=== PATIENT | male | born 1985 | race Caucasian/White ===

== ENCOUNTER 2019-01-18 00:31 | Inpatient (IN) ==
[2019-01-18] MEDS ORDERED: Naloxone 0.4 MG/ML INJ IVP PRN (08:22)
[2019-01-18] MEDS ORDERED: Ketorolac 30 MG/ML VIAL IVP PRN (08:22)
--- NOTE | 2019-01-18 08:22 | Internal Med History&Physical ---
Date of Encounter: 01/18/19 Time of Encounter: 09:00 Internal Medicine - H&P: HPI History of present illness: Mr. Akins is a 33 male with poorly controlled diabetes, chronic right foot wound ulcers, right toes amputation, left BKA presented as a transfer from [place] ED for a worsening right foot ulcer. Onset was 4 weeks ago after stepping on glass. He has had episodes of nausea for several days and noteiced right leg has been getting red and swollen with some discharge on bottom of f oot. He was supposed to see Wound Care but was unable to do so. He denies fevers/chills, palpitations. In [place] he was given IV clindamycin, IV fluids, IV toradol. The right foot wound was washed out and glass was removed with forceps. An x-ray was then done that showed no residual glass. Wound cultures were obtained. He was transferred here to [facility] for request of Podiatry consult. Past Med Surg Social Fam HX - Past Medical History Medical history: diabetes, hypertension Psychiatric history: anxiety, depression - Past Surgical History Additional surgical history: LBKA,RIGHT PARTIAL FOOT AMPUTATION - Social History Smoking Status: Current every day smoker Smokeless Tobacco Status: No Alcohol use: rarely Drug use: marijuana Internal Medicine - H&P: Meds Insulin ASPART [NovoLOG] 0 unit SQ TIDWM 11/25/18 [History] Insulin Glargine [Lantus] 42 unit SQ HS 11/25/18 [History] Omeprazole [PriLOSEC] 40 mg PO DAILY 11/25/18 [History] amLODIPine [Norvasc] 5 mg PO DAILY 11/25/18 [History] Allergy/AdvReac Type Severity Reaction Status Date / Time vancomycin AdvReac See Verified 01/17/19 21:19 Comments All Systems PM: A 10-system review of systems was performed and is negative for pertinent findings except as documented above in the HPI. - Constitutional Constitutional: no chills, no fever(s), no night sweats - EENT Eyes: no change in vision, no discharge, no pain, no photophobia Ears: no ear discharge, no ear pain, no tinnitus Nose, mouth and throat: no dysphagia, no nasal discharge, no neck pain, no sore throat - Cardiovascular Cardiovascular ROS IM: no chest pain, no diaphoresis, no dyspnea, no lightheadedness, no palpitations, no syncope - Respiratory Respiratory: no cough, no dyspnea, no wheezing, no excessive phlegm production - Gastrointestinal Gastrointestinal: nausea, no abdominal pain, no diarrhea, no hematemesis, no hematochezia, no melena, no vomiting - Musculoskeletal Musculoskeletal ROS IM: no numbness, no tingling - Integumentary Integumentary IM: no rash, no unusual bruising - Neurological Neurological ROS: no confusion, no convulsions, no focal weakness, no numbness, no tingling, no tremor(s) - Hematologic/Lymphatic Hematologic/Lymphatic: no easy bruising - Constitutional Vitals: Temp Pulse Resp BP Pulse Ox 97.6 F 66 15 102/64 98 01/18/19 08:14 01/18/19 08:14 01/18/19 08:14 01/18/19 08:14 01/18/19 08:14 General appearance: Present: A&O X 3 Exam: . - Head Head exam: Present: atraumatic, normocephalic - Eye Eye exam: Present: PERRL, conjuntiva pink, sclera anicteric Pupils: Present: PERRL - Neck Neck exam general surgery: Present: supple, trachea midline. Absent: lymphadenopathy - Respiratory Respiratory exam: Present: CTAB. Absent: accessory muscle use, rales, rhonchi, wheezes - Cardiovascular Cardiovascular exam: Present: RRR, +S1, +S2. Absent: diastolic murmur, gallop, rubs, systolic murmur - GI/Abdominal GI/Abdominal exam: Present: normal bowel sounds, soft, no peritoneal signs. Absent: distended, tenderness - Extremities Exam Extremities exam: Present: warm. Absent: calf tenderness, cyanotic, pedal edema Additional comments: Left BKA. Right Extremity: right toes are amputated with surgical wounds clear. There is a 2x3 cm plantar surface ulcer post-washout and glass removal. Wound is clean currently with no purulent discharge or bleeding. There is a lateral non- healing ulcer on lateral part of foot and another ulceration on the posterior ankle in the Achilles tendon region. - Neurological Exam Neurological exam: Present: CN II-XII intact, oriented X3, no focal deficits. Absent: pronater drift, facial droop, speech deficit - Skin Skin exam: Present: dry, intact - Assessment and Plan (1) Diabetic foot ulcer Current Visit: No Status: Acute Assessment and plan: Transferred from [place] ED with request for Podiatry consultation. Patient is non-toxic appearing at this time. Labs done at [place] ED, does not meet sepsis criteria. Received dose of IV Clindamycin at [place] - Consult Podiatry - NPO for now, if no intervention is needed, can start a diabetic diet - Linezolid/Zosyn. Allergic to vancomycin. MRSA screen, follow-up wound cultures obtained at [place]. - CT right foot Qualifiers: Diabetic foot ulcer location: unspecified part of foot Diabetes mellitus type: type 2 Laterality: right Non-pressure ulcer stage: with fat layer exposed Qualified Code(s): E11.621 - Type 2 diabetes mellitus with foot ulcer; L97.512 - Non-pressure chronic ulcer of other part of right foot with fat layer exposed (2) Diabetes mellitus Current Visit: Yes Status: Acute Assessment and plan: NPO for now until Podiatry eval. 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 - Time Spent With Patient Total time spent is greater than 50% in coordination of care (as documented) at patient's floor/unit and/or counseling patient:
[2019-01-18] MEDS ORDERED: Insulin LISPRO 300 UNITS/3 ML VIAL SQ SCH (08:30)
[2019-01-18] MEDS ORDERED: *HR* Dextrose 50 % in Water (Syg) 50 ML SYRINGE IVP PRN (08:50)
[2019-01-18] MEDS ORDERED: Dextrose Gel 15 GM/37.5 ML TUBE PO PRN ×2 (08:50)
[2019-01-18] MEDS ORDERED: D5% in Water 1,000 ML IVC PRN (08:50)
[2019-01-18] MEDS ORDERED: Isovue-370 500 ML BOTTLE IVP ONE (08:52)
[2019-01-18] MEDS ORDERED: Ringers Solution, Lactated 1,000 ML IVC SCH (09:00)
[2019-01-18] MEDS: Piperacillin/Tazobactam 3.375 GM in 0.9 % Sodium Chloride Mini Bag 100 ML IVPB SCH ×2 (10:48→19:03)
[2019-01-18] MEDS: *HR* Heparin 5,000 UNIT/ML VIAL SQ SCH ×2 (10:48→17:36)
[2019-01-18] MEDS: 0.9 % Sodium Chloride 1,000 ML IVC SCH (10:49)
[2019-01-18] MEDS ORDERED: *HR* OxyCODONE Immed Rel 5 MG TABLET PO PRN (11:36)
[2019-01-18] MEDS: Insulin LISPRO 300 UNITS/3 ML VIAL SQ SCH ×3 (12:03→20:56)
[2019-01-18] MEDS: *HR* OxyCODONE Immed Rel 5 MG TABLET PO PRN (21:38)
[2019-01-18] MEDS: Nicotine 14 MG PATCH.TD24 TD SCH (22:56)
[2019-01-18] MEDS ORDERED: *HR* LORazepam 2 MG/ML VIAL IVP ONE (22:59)
[2019-01-19] MEDS: *HR* OxyCODONE Immed Rel 5 MG TABLET PO PRN ×6 (01:36→23:53)
[2019-01-19 02:20] LABS: Basophils % 0.6 %; Eosinophils # 0.2 K/mcL (0.0-0.6); Eosinophils % 4.6 %; Hematocrit 35.3 % (37.5-50.1); Hemoglobin 11.8 g/dL (12.9-16.9); Immature Granulocytes % 0.3 % (0-4); Lymphocytes # 1.3 K/mcL (0.6-4.6); Lymphocytes % 37.5 %; Mean Corpuscular HGB Conc 33.4 g/dL (31.6-35.5); Mean Corpuscular Hemoglobin 31.7 pg (28.0-33.3); Mean Corpuscular Volume 94.9 fL (83.0-100.0); Monocytes # 0.3 K/mcL (0.0-1.3); Monocytes % 8.9 %; Neutrophils # 1.7 K/mcL (1.6-8.9); Platelet Count 150 K/mcL (140-400); Red Blood Count 3.72 M/mcL (4.19-5.50); Segmented Neutrophils % 48.1 %; White Blood Count 3.5 K/mcL (4.3-11.1)
[2019-01-19 02:27] LABS: INR 1.1; Prothrombin Time 12.4 Seconds (9.4-12.1)
[2019-01-19 02:35] LABS: BUN/Creatinine Ratio 12 (6-26); Blood Urea Nitrogen 12 mg/dL (6-20); Calcium 8.9 mg/dL (8.6-10.3); Carbon Dioxide 27 mEq/L (23-29); Chloride 105 mEq/L (98-107); Glucose 113 mg/dL (70-105); Osmolality,Calculated 287 (280-300); Potassium 3.8 mEq/L (3.5-5.1); Sodium 138 mEq/L (136-145); eGFR For African Americans > 60 (> 60); eGFR For Non-African Americans > 60 (> 60)
[2019-01-19] MEDS: Piperacillin/Tazobactam 3.375 GM in 0.9 % Sodium Chloride Mini Bag 100 ML IVPB SCH ×3 (03:06→18:08)
[2019-01-19] MEDS: 0.9 % Sodium Chloride 1,000 ML IVC SCH ×3 (03:08→15:06)
[2019-01-19] MEDS: *HR* Heparin 5,000 UNIT/ML VIAL SQ SCH ×2 (06:23→18:08)
[2019-01-19 07:03] LABS: Estimated Average Glucose 146 mg/dl
[2019-01-19] MEDS: Insulin LISPRO 300 UNITS/3 ML VIAL SQ SCH ×4 (07:56→20:32)
[2019-01-19] MEDS: amLODIPine 5 MG TABLET PO SCH (09:47)
--- NOTE | 2019-01-19 14:49 | Internal Med Progress Note ---
Hospitalist Progress Note - Encounter Date of Encounter: 01/19/19 Time of Encounter: 09:23 - Subjective Interval History: NO acute events. Patient denies pain, fever and chills. - Exam Vitals: Temp Pulse Resp BP Pulse Ox 36.6 C 77 14 133/81 99 01/19/19 10:49 01/19/19 10:49 01/19/19 10:49 01/19/19 10:49 01/19/19 10:49 Exam: .GENERAL: Not in distress. Alert and Oriented HEENT: EOMI, PERRLA MOUTH: Good oral hygiene NECK:No JVD, No lymph nodes. CHEST AND LUNGS: Normal breath sounds, no wheezes or crackles HEART: S1 and S2 normal, no murmurs ABDOMEN: Soft, nontender, no organomegaly GENITOURINARY: SKIN: Normal color, no rahses, no lesions EXTREMITIES: Left BKA with healthy looking stump. Right foot with TMA. Dressing over foot is currently clean without drainage. NEUROLOGICAL: Normal cognition, normal motor and sensory exam. - Assessment and Plan (1) Diabetic foot ulcer Current Visit: No Status: Acute Assessment and Plan: Podiatry consult placed Awaiting review Continue IV antibiotics (2) Diabetes mellitus Current Visit: Yes Status: Acute Assessment and Plan: NPO for now until Podiatry eval. ISS Q6H (3) DVT prophylaxis Current Visit: Yes Status: Acute Assessment and Plan: Accuchecks Sliding scale - Time Spent with Patient Total time spent is greater than 50% in coordination of care (as documented) at patient's floor/unit and/or counseling patient: Internal Medicine: Result - Labs CBC & Chem 7: 01/19/19 01:46 01/19/19 01:46 Labs: Short CBC 01/19/19 Range/Units 01:46 WBC 3.5 L (4.3-11.1) K/mcL Hgb 11.8 L (12.9-16.9) g/dL Hct 35.3 L (37.5-50.1) % Plt Count 150 (140-400) K/mcL Neutrophils # 1.7 (1.6-8.9) K/mcL BMP 01/19/19 01:46 Sodium 138 Potassium 3.8 Chloride 105 Carbon Dioxide 27 BUN 12 Creatinine 1.01 Glucose 113 H Calcium 8.9 - ABG Interpretation ABG results: PT/INR, D-dimer PT 12.4 Seconds (9.4-12.1) H 01/19/19 01:46 Consult Discharge Plan - Plan Referrals: NONE,PCP [Primary Care Provider] - (1) Diabetic foot ulcer Qualifiers: Diabetic foot ulcer location: unspecified part of foot Diabetes mellitus type: type 2 Laterality: right Non-pressure ulcer stage: with fat layer exposed Qualified Code(s): E11.621 - Type 2 diabetes mellitus with foot ulcer; L97.512 - Non-pressure chronic ulcer of other part of right foot with fat layer exposed (2) Diabetes mellitus Qualifiers: Diabetes mellitus type: type 2 Diabetes mellitus long term care administrator insulin use: with long term care administrator use Diabetes mellitus complication status: with skin complications Diabetes mellitus complication detail: with foot ulcer Qualified Code(s): E11.621 - Type 2 diabetes mellitus with foot ulcer; L97.509 - Non-pressure chronic ulcer of other part of unspecified foot with unspecified severity; 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
[2019-01-19] MEDS: Nicotine 14 MG PATCH.TD24 TD SCH (21:56)
[2019-01-19] MEDS ORDERED: *HR* LORazepam 2 MG/ML VIAL IVP ONE (22:05)
[2019-01-20] MEDS: Piperacillin/Tazobactam 3.375 GM in 0.9 % Sodium Chloride Mini Bag 100 ML IVPB SCH ×3 (04:02→18:50)
[2019-01-20] MEDS: *HR* OxyCODONE Immed Rel 5 MG TABLET PO PRN ×5 (04:04→21:48)
[2019-01-20] MEDS: *HR* Heparin 5,000 UNIT/ML VIAL SQ SCH ×2 (05:19→17:58)
[2019-01-20] MEDS: Insulin LISPRO 300 UNITS/3 ML VIAL SQ SCH ×4 (08:40→21:19)
[2019-01-20] MEDS: amLODIPine 5 MG TABLET PO SCH (09:43)
[2019-01-20] MEDS: 0.9 % Sodium Chloride 1,000 ML IVC SCH (09:46)
--- NOTE | 2019-01-20 11:39 | Internal Med Progress Note ---
Hospitalist Progress Note - Encounter Date of Encounter: 01/20/19 Time of Encounter: 11:35 - Subjective Interval History: Patient seen and examined this morning at bedside. No acute overnight events. Denies any fevers chills however does have some nausea. Was able to keep the breakfast. Has some burning pain in his right foot afebrile and hemodynamically stable. - Exam Vitals: Temp Pulse Resp BP Pulse Ox 98.2 F 89 17 121/81 97 01/20/19 11:09 01/20/19 11:01/20/19 11:01/20/19 11:01/20/19 11:09 Exam: General: In no acute distress. Respiratory exam: CTAB. no accessory muscle use, rales, rhonchi, wheezes Cardiovascular exam: RRR, +S1, +S2. no murmur, gallop, rubs. GI/Abdominal exam: Non-tender, Non-distended, normal bowel sounds, soft, no peritoneal signs. Extremities exam: 1+ pedal edema on Rt, Has Lt BKA and Rt TMA. Dressing in place with mild soakage. Neurological exam: CN II-XII intact, AO X3, no focal deficits. Skin exam: No skin rash - Assessment and Plan (1) Diabetic foot ulcer Current Visit: No Status: Acute (2) Diabetes mellitus Current Visit: Yes Status: Acute (3) DVT prophylaxis Current Visit: Yes Status: Acute - Summary of Assessment and Plan Summary of Assessment and Plan: Assessment Acute Diabetic foot ulcer with abscess Chronic DM HTN Depression Plan - Diabetic foot ulcer with finding concerning of abscess on Rt foot - on empiric linezolid and zosyn. Wound growing corynebacterium striatum. Will consult ID for abx guidance as linezolid will interact with antidepressants. - Podiatry consulted. - c/w Accuchecks and Sliding scale - heparin for DVT ppx. Internal Medicine: Result - Labs CBC & Chem 7: 01/19/19 01:46 01/19/19 01:46 - ABG Interpretation ABG results: PT/INR, D-dimer PT 12.4 Seconds (9.4-12.1) H 01/19/19 01:46 Consult Discharge Plan - Plan Referrals: NONE,PCP [Primary Care Provider] - (1) Diabetic foot ulcer Qualifiers: Diabetic foot ulcer location: unspecified part of foot Diabetes mellitus type: type 2 Laterality: right Non-pressure ulcer stage: with fat layer exposed Qualified Code(s): E11.621 - Type 2 diabetes mellitus with foot ulcer; L97.512 - Non-pressure chronic ulcer of other part of right foot with fat layer exposed (2) Diabetes mellitus Qualifiers: Diabetes mellitus type: type 2 Diabetes mellitus fdc insulin 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
--- NOTE | 2019-01-20 14:42 | Infectious Disease Consult ---
Infectious Disease-Consult - Encounter Date/Time Date of Encounter: 01/20/19 Time of Encounter: 14:33 - Data of Consult Patient: new to practice Reason for consult: Right foot Abscess Consult date: 01/20/19 Requesting Physician: Dereje Naylor MD Primary Care Provider: PCP NONE - HPI HPI: Patient is a 33-year-old gentleman who presented to [facility] on 01/18/2019 as a transfer from [place] emergency department for worsening right foot ulcer. We are consulted on 01/20/2019 for right foot abscess. Patient with extensive past medical history including diabetes mellitus for about 10 years is poorly controlled complicated by diabetic foot ulcer with infection on the left requiring BKA in the past and history of Right transmetatarsal amputation at an outside facility presenting with worsening diabetic foot ulcer of the leg. Patient tells me that his been getting progressively worse for about 3 weeks. Patient was started with Bactrim by me and was referred to wound care. Patient denies any fevers chills night sweats. Patient denies use no chest pain or shortness of breath. Patient denies any co ugh assist. No nausea no vomiting or diarrhea. No urinary symptoms. Since admission patient has been afebrile, tachycardic without tachypnea. Presenting labs revealed a WBC of 3.5 with 48% neutrophils. ESR was 21. BUN of [address] of the foot revealed motion artifact. Large ulceration along the plantar soft tissue distantly with underlying rim-enhancing collection difficult to measure given that serpiginous course of the collection. This measures approximately 1.12.32.9 cm in greatest dimension. Findings most compatible with an abscess. - ROS Review of Systems: 10 point ROS done, negative other for what's mentioned in the HPI - Results CBC & Chem 7: 01/19/19 01:46 01/19/19 01:46 - Exam Vitals: Temp Pulse Resp BP Pulse Ox 98.2 F 89 17 121/81 97 01/20/19 11:09 01/20/19 11:09 01/20/19 11:09 01/20/19 11:09 01/20/19 11:09 Exam: GENERAL: Laying in bed, appears comfortable. HEAD: Normocephalic atraumatic EYES: PERRLA, EOMI, no conjunctival hemorrhage, sclera anicteric ENT: Mucous membranes moist, no oral thrush NECK: Supple. No meningeal signs. No masses LUNGS: Chest expanding symmetrically. Lungs sounds audible both lung francis. No wheezing, no rhonchi CV: RRR, S1S2, ABDOMEN: Soft, nontender, nondistended. Bowel sounds audible BACK: No CVA tenderness. Normal inspection. No tenderness over the spine EXTREMITY: L BKA, R Transmetatarsal amputation with Cheney grade II ulceration right lateral foot, right plantar foot Unstageable ulceration right posterior achilles tendon SKIN: Normal color. No rash. NEURO: Awake alert oriented 3. No obvious focal deficit PSYCH: Calm and appropriate. No agitation. Insulin ASPART [NovoLOG] 0 unit SQ TIDWM 11/25/18 [History] Omeprazole [PriLOSEC] 40 mg PO DAILY 11/25/18 [History] amLODIPine [Norvasc] 5 mg PO DAILY 11/25/18 [History] BuPROPion SR (12 HR) [Wellbutrin SR] 150 mg PO BID 01/19/19 [History] Citalopram [CeleXA] 20 mg PO DAILY 01/19/19 [History] Insulin DETEMIR [Levemir Flextouch] 42 unit SQ HS 01/19/19 [History] Quetiapine Fumarate [SEROquel] 25 mg PO HS 01/19/19 [History] Allergy/AdvReac Type Severity Reaction Status Date / Time vancomycin AdvReac See Verified 01/19/19 16:44 Comments - Assessment and Plan (1) Sepsis Current Visit: Yes Status: Acute had 2 SIRS criteria on admission, likely secondary to right foot infection/abscess Qualifiers: Sepsis type: sepsis due to unspecified organism Qualified Code(s): A41.9 - Sepsis, unspecified organism SNOMED Code(s): 10122555 (2) Abscess of right foot Current Visit: Yes Status: Acute CT foot read: Large ulceration along the plantar soft tissues distally with underlying rim enhancing collection which is difficult to measure given the serpiginous course of the collection. This measures approximately 1.1 x 2.3 x 2.9 cm in greatest dimension. Findings most compatible with abscess. Wound culture positive for corynebacteriium striatum Currently patient is on zyvox and zosyn patient had BETHANY with vancomycin in the past so he is concerned about taking it Recommend d/cing zyvox continue zosyn start doxycycline 100mg po bid orally await podiatry input duration of treatment depends on clinical picture and if the paper has an I&D SNOMED Code(s): 15417974537685092 (3) Diabetic foot ulcer Current Visit: Yes Status: Acute Qualifiers: Diabetic foot ulcer location: unspecified part of foot Diabetes mellitus type: type 2 Laterality: right Non-pressure ulcer stage: with fat layer exposed Qualified Code(s): E11.621 - Type 2 diabetes mellitus with foot ulcer; L97.512 - Non-pressure chronic ulcer of other part of right foot with fat layer exposed SNOMED Code(s): 197446219 (4) Diabetes mellitus Current Visit: Yes Status: Acute Qualifiers: Diabetes mellitus type: type 2 Diabetes mellitus nursing home insulin use: with nursing home use Diabetes mellitus complication status: with skin complications Diabetes mellitus complication detail: with foot ulcer Qualified Code(s): E11.621 - Type 2 diabetes mellitus with foot ulcer; L97.509 - Non-pressure chronic ulcer of other part of unspecified foot with unspecified severity; Z79.4 - half-way (current) use of insulin SNOMED Code(s): 46711887 Past Med Surg Social Fam HX - Past Medical History Medical history: diabetes, hypertension Psychiatric history: anxiety, depression - Past Surgical History Additional surgical history: LBKA,RIGHT PARTIAL FOOT AMPUTATION - Social History Smoking Status: Current every day smoker Packs per day: 0.5 Smokeless Tobacco Status: No Alcohol use: none Drug use: none, marijuana - Family History Mother Hx Family Cardiac Disorders: Yes Hx Family Endocrine Disorder: Yes Father Hx Family Cardiac Disorders: Yes Consult Discharge Plan - Plan Referrals: NONE,PCP [Primary Care Provider] -
--- NOTE | 2019-01-20 15:03 | Podiatry Consult Note ---
Date of Encounter: 01/20/19 Time of Encounter: 15:01 Assessment and Plan (1) Diabetic foot ulcer Current visit: Yes Status: Acute Assessment: Cheney grade II ulceration right lateral foot, right plantar foot Unstageable ulceration right posterior achilles tendon Erythema noted to plantar aspect of foot WBC 3.5, ESR 21, CRP 24 CT suggestive of abscess, although no area of fluctuance palpated XR negative for OM Plan: MR of right foot ordered to evaluate abscess Dressing changed, see below Local wound care ordered, nursing to change Venous duplex ordered to r/o DVT right calf pain Will discuss with surgeon surgical plan, at this time no plan for surgery Cleansed right foot ulcers with 0.9 NS, covered all ulcerations with calcium alginate, 4x4 dry gauze, and kerlix. Secured with medipore tape Impression: CT/CT foot RT w con IMPRESSION: 1. Image quality is significantly degraded secondary to motion artifact. 2. Large ulceration along the plantar soft tissues distally with underlying rim enhancing collection which is difficult to measure given the serpiginous course of the collection. This measures approximately 1.1 x 2.3 x 2.9 cm in greatest dimension. Findings most compatible with abscess. 3. No definite CT evidence for osteomyelitis within limits of the current exam. D/ / Diallo Burns MD / Diallo Burns MD Interpreting Provider: Diallo Burns MD R #: [id number] XR/XR foot 3V RT IMPRESSION: Large ulceration along the plantar aspect of the foot anteriorly. No retained foreign body is identified (although some forms of glass will be radiolucent). There is associated soft tissue swelling. No radiographic evidence of osteomyelitis identified, however. D/ / Gadiel Carballo MD / Gadiel Carballo MD Interpreting Provider: Gadiel Carballo MD Qualifiers: Diabetic foot ulcer location: unspecified part of foot Diabetes mellitus type: type 2 Laterality: right Non-pressure ulcer stage: with fat layer exposed Qualified Code(s): E11.621 - Type 2 diabetes mellitus with foot ulcer; L97.512 - Non-pressure chronic ulcer of other part of right foot with fat layer exposed History of Present Illness Chief complaint: right foot ulcerations HPI: Mr. Hickman is a 33 year old male who presented to [place] [facility] with complaints of right foot ulceration, erythema and edema. Patient is unknown to the podiatry group. Patient is a poor historian and reluctant to give information. PMH of DM, anxiety, depression. Reports smoking less than a pack a day, denies etoh abuse, reports smoking marijuana when he can stating "its not relevant, but when I can I may smoke two joints." Briefly, patient reports being an active diabetic which has caused him to have multiple foot ulcerations. She reports he has had over 10 surgeries in the last 2 years due to his diabetes. Patient reports he has from [place] and has had surgeries completed there. Reports moving to [place] it is unclear if patient was not in the [facility] or if he has from [place]. Patient reports he was then [facility] for the last 5 months and recently was discharged. Patient reports he stepped on a piece of glass. Reports worsening redness and streaking of right lower extremity. Reports ulceration to right lateral foot that started 3 months ago, reports ulceration to right plantar foot that started 1 month ago, reports right posterior Achilles tendon ulceration that he has had ever since having TMA. Again, Mr. Hickman is a 33-year-old male who is consult us to the podiatry group for right foot ulcers. Patient also has left BKA which patient was unwilling to let me evaluate, stating he had no wounds to left stump site. Patient currently has a left prosthetic sleeve on. Patient is noted to have right TMA with healed incisions. Right plantar foot wound with hyperkeratosis surrounding tissue, wound bed pink and beefy, no undermining no tunneling noted to wound bed. Minimal erythema noted to surrounding tissue. Right lateral foot ulcer with hyperkeratosis noted to surrounding tissue. No undermining, no tunneling noted to wound bed. No erythema noted to surrounding tissue. WBC 3.5, wound culture returned corynebacterium, CT concerning for abscess. Reports fevers, chills, nausea, vomiting, or diarrhea. Reports calf pain. Denies chest pain or shortness of breath. No other questions or concerns at this time. Past Med Surg Social Fam HX - Past Medical History Medical history: diabetes, hypertension Psychiatric history: anxiety, depression - Past Surgical History Additional surgical history: LBKA,RIGHT PARTIAL FOOT AMPUTATION - Social History Smoking Status: Current every day smoker Packs per day: 0.5 Smokeless Tobacco Status: No Alcohol use: none Drug use: none, marijuana - Family History Mother Hx Family Cardiac Disorders: Yes Hx Family Endocrine Disorder: Yes Father Hx Family Cardiac Disorders: Yes Medications and Allergies Insulin ASPART [NovoLOG] 0 unit SQ TIDWM 11/25/18 [History] Omeprazole [PriLOSEC] 40 mg PO DAILY 11/25/18 [History] amLODIPine [Norvasc] 5 mg PO DAILY 11/25/18 [History] BuPROPion SR (12 HR) [Wellbutrin SR] 150 mg PO BID 01/19/19 [History] Citalopram [CeleXA] 20 mg PO DAILY 01/19/19 [History] Insulin DETEMIR [Levemir Flextouch] 42 unit SQ HS 01/19/19 [History] Quetiapine Fumarate [SEROquel] 25 mg PO HS 01/19/19 [History] Allergy/AdvReac Type Severity Reaction Status Date / Time vancomycin AdvReac See Verified 01/19/19 16:44 Comments All Systems Reviewed: The remainder of the systems were reviewed and are negative - Constitutional Constitutional: fever(s) - Cardiovascular Cardiovascular: edema, pedal edema, other (pedal ulcer), no chest pain - Respiratory Respiratory: no cough, no dyspnea - Musculoskeletal Musculoskeletal: numbness, tingling Physical Exam - Constitutional Vitals: Temp Pulse Resp BP Pulse Ox 98.2 F 89 17 121/81 97 01/20/19 11:09 01/20/19 11:09 01/20/19 11:09 01/20/19 11:09 01/20/19 11:09 Exam: Constitiutional: Alert and oriented x 3. Agitated. Well nourished. No acute distress noted Vascular: Faint DP/PT RLE, Right TMA, L BKA, warm to warm from tibia to stump RLE, calf pain with squeeze RLE Neurologic: Absent sensation to touch, normal plantar response Dermatologic: Cheney grade II ulceration noted to right plantar midfoot and right lateral 5th metatarsal, unstageable ulcer noted to right achilles tendon area with areas of eschar noted, erythema noted to surrounding tissue Musculoskeletal: 3/5 muscle strength and normal tone bilaterally. Results - Labs Result Diagrams: 01/19/19 01:46 01/19/19 01:46 Labs: Abnormal lab results WBC 3.5 K/mcL (4.3-11.1) L 01/19/19 01:46 RBC 3.72 M/mcL (4.19-5.50) L 01/19/19 01:46 Hgb 11.8 g/dL (12.9-16.9) L 01/19/19 01:46 Hct 35.3 % (37.5-50.1) L 01/19/19 01:46 ESR 21 mm/hr (0-10) H 01/20/19 12:19 PT 12.4 Seconds (9.4-12.1) H 01/19/19 01:46 Glucose 113 mg/dL (70-105) H 01/19/19 01:46 POC Glucose 195 mg/dL (70-99) H 01/20/19 11:13 Hemoglobin A1c 6.7 % (-5.6) H 01/19/19 01:46 C-Reactive Protein 24 mg/L (Less than 10) H 01/20/19 12:19 All other labs normal. - Diagnostic results Ankle/Foot x-ray: report reviewed Ankle/Foot CT: report reviewed Consult Discharge Plan - Plan Referrals: NONE,PCP [Primary Care Provider] -
[2019-01-20] MEDS ORDERED: Gadolinium Contrast Agent (WT Based) IV PRN (16:32)
[2019-01-20] MEDS ORDERED: *HR* LORazepam 2 MG/ML VIAL IVP ONE (20:53)
[2019-01-20] MEDS: Nicotine 14 MG PATCH.TD24 TD SCH (21:46)
[2019-01-21] MEDS: Piperacillin/Tazobactam 3.375 GM in 0.9 % Sodium Chloride Mini Bag 100 ML IVPB SCH ×2 (02:24→10:48)
[2019-01-21] MEDS: *HR* OxyCODONE Immed Rel 5 MG TABLET PO PRN ×5 (02:25→20:02)
[2019-01-21] MEDS: 0.9 % Sodium Chloride 1,000 ML IVC SCH ×2 (05:46→17:45)
[2019-01-21] MEDS: *HR* Heparin 5,000 UNIT/ML VIAL SQ SCH ×2 (06:24→17:44)
[2019-01-21] MEDS: Insulin LISPRO 300 UNITS/3 ML VIAL SQ SCH ×4 (07:47→20:04)
[2019-01-21] MEDS: amLODIPine 5 MG TABLET PO SCH (08:40)
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
[2019-01-21] MEDS: Doxycycline 100 MG CAPSULE PO SCH ×2 (11:00→20:04)
--- NOTE | 2019-01-21 12:05 | Podiatry Progress Note ---
Date of Encounter: 01/21/19 Time of Encounter: 12:03 - Assessment and Plan (1) Diabetic foot ulcer Current Visit: Yes Status: Acute Assessment: Cheney grade II ulceration right lateral foot, right plantar foot Small area of tunneling noted to right plantar foot with no drainage noted, 0.3 cm Unstageable ulceration right posterior achilles tendon Erythema noted to plantar aspect of foot WBC 3.5 yesterday, no labs today, ESR 21, CRP 24 CT suggestive of abscess, although no area of fluctuance palpated XR negative for OM Wound culture positive for coryneabacterium Blood cultures pending Plan: MR of right foot ordered to evaluate abscess, pending If MR negative for abscess will opt for conservative treatment, continue with local wound care, and recommend PO atb If MR positive for abscess will discuss surgical options with patient ID consulted- recommendations appreciated Dressing changed, see below Local wound care ordered, nursing to change Venous duplex ordered to r/o DVT right calf pain, pending Will discuss with surgeon surgical plan, at this time no plan for surgery Cleansed right foot ulcers with 0.9 NS, covered all ulcerations with calcium alginate, 4x4 dry gauze, and kerlix. Secured with medipore tape Impression: CT/CT foot RT w con IMPRESSION: 1. Image quality is significantly degraded secondary to motion artifact. 2. Large ulceration along the plantar soft tissues distally with underlying rim enhancing collection which is difficult to measure given the serpiginous course of the collection. This measures approximately 1.1 x 2.3 x 2.9 cm in greatest dimension. Findings most compatible with abscess. 3. No definite CT evidence for osteomyelitis within limits of the current exam. D/ / Diallo Burns MD / Diallo Burns MD Interpreting Provider: Diallo Burns MD R #: [id number] XR/XR foot 3V RT IMPRESSION: Large ulceration along the plantar aspect of the foot anteriorly. No retained foreign body is identified (although some forms of glass will be radiolucent). There is associated soft tissue swelling. No radiographic evidence of osteomyelitis identified, however. D/ / Gadiel Carballo MD / Gadiel Carballo MD Interpreting Provider: Gadiel Carballo MD Qualifiers: Diabetic foot ulcer location: unspecified part of foot Diabetes mellitus type: type 2 Laterality: right Non-pressure ulcer stage: with fat layer exposed Qualified Code(s): E11.621 - Type 2 diabetes mellitus with foot ulcer; L97.512 - Non-pressure chronic ulcer of other part of right foot with fat layer exposed Subjective Principal diagnosis: Right foot ulcer Interval history: Patient awake in bed. Alert and oriented x 3. Reports fevers, chills, nausea, vomiting, and diarrhea. Reports chest pain and calf pain. Denies shortness of breath. Denies any overnight events. No other questions or concerns at this time. Objective - Vital Signs Vital Signs: Vital Signs Temp Pulse Resp BP Pulse Ox 01/21/19 11:27 98.4 F 93 16 125/86 100 01/21/19 11:00 88 01/21/19 07:42 97.7 F 113 16 137/87 100 01/21/19 03:50 97.8 F 73 15 129/83 99 01/20/19 23:10 98.4 F 86 15 127/85 99 01/20/19 21:17 99 01/20/19 18:49 97.9 F 82 15 132/85 99 01/20/19 15:36 98.3 F 73 16 123/79 98 Intake and Output 01/20/19 01/21/19 01/21/19 23:59 07:59 15:59 Intake Total 1500 / 3200 340 / 798 458 / 798 Output Total 475 / 1275 1000 / 1875 875 / 1875 Balance 1025 / 1925 -660 / -1077 -417 / -1077 Intake: IV Fluids 1500 / 3200 100 / 558 458 / 558 0.9 % Sodium Chloride 1,000 ML 1000 / 2000 458 / 458 @ 100 mls/hr IVC .Q10H [facility] Rx#: [id number] Zyvox Premix 600mg/300mL 600 mg 300 / 900 In 300 ml @ 150 mls/hr IVPB Q12H [facility] Rx#:[id number] Zosyn 3.375 GM In 0.9 % Sodium 200 / 300 100 / 100 Chloride (Mini-Bag +) 100 ML @ 25 mls/hr IVPB Q8H [facility] Rx#: [id number] Oral 240 / 240 Output: Urine 475 / 1275 1000 / 1875 875 / 1875 Other: Weight 97 kg Blood Glucose* 127 140 153 Patient Weight 01/21/19 23:59 Weight 97 kg - Exam Exam: Constitiutional: Alert and oriented x 3. Agitated. Well nourished. No acute distress noted Vascular: Faint DP/PT RLE, Right TMA, L BKA, warm to warm from tibia to stump RLE, calf pain with squeeze RLE Neurologic: Absent sensation to touch, normal plantar response Dermatologic: Cheney grade II ulceration noted to right plantar midfoot and right lateral 5th metatarsal, right plantar ulcer with 0.3 x 0.3 x 0.3 cm wound within ulcer. unstageable ulcer noted to right achilles tendon area with areas of eschar noted, erythema noted to surrounding tissue Musculoskeletal: 3/5 muscle strength and normal tone bilaterally. - Lab Result Diagrams: 01/19/19 01:46 01/19/19 01:46 Labs: Abnormal lab results WBC 3.5 K/mcL (4.3-11.1) L 01/19/19 01:46 RBC 3.72 M/mcL (4.19-5.50) L 01/19/19 01:46 Hgb 11.8 g/dL (12.9-16.9) L 01/19/19 01:46 Hct 35.3 % (37.5-50.1) L 01/19/19 01:46 ESR 21 mm/hr (0-10) H 01/20/19 12:19 PT 12.4 Seconds (9.4-12.1) H 01/19/19 01:46 Glucose 113 mg/dL (70-105) H 01/19/19 01:46 POC Glucose 127 mg/dL (70-99) H 01/20/19 20:30 Hemoglobin A1c 6.7 % (-5.6) H 01/19/19 01:46 C-Reactive Protein 24 mg/L (Less than 10) H 01/20/19 12:19 Microbiology, Last 48 Hours 01/18/19 11:25 Wound Culture - Final Right Foot Corynebacterium striatum Consult Discharge Plan - Plan Referrals: NONE,PCP [Primary Care Provider] -
--- NOTE | 2019-01-21 13:11 | Infectious Disease Progress No ---
ID Progress Note Date of Encounter: 01/21/19 Time of Encounter: 12:20 - Subjective Subjective: Patient seen and examined. No acute events noted overnight. Patient states he is irritated that he has to keep answering the same questions from different providers. Denies fevers, chills, or rigors. Denies chest pain, shortness of breath, or cough. Denies vomiting or diarrhea. Reports some intermittent nausea. Reports some abdominal discomfort and states he feels a little constipated. Denies pain at this time. - Objective CBC & Chem 7: 01/19/19 01:46 01/19/19 01:46 - Exam Vitals: Temp Pulse Resp BP Pulse Ox 98.4 F 93 16 125/86 100 01/21/19 11:27 01/21/19 11:27 01/21/19 11:27 01/21/19 11:27 01/21/19 11:27 Exam: Head: Atraumatic, normal inspection, normocephalic. Eye: EOMI, PERRLA, no scleral icterus noted. ENT: Mucous membranes moist. No odontogenic infection noted. Neck: Normal inspection, no meningismus. Respiratory: Clear to auscultation. No rales, respiratory distress, rhonchi, or wheezes noted. Cardiovascular: Regular rate and rhythm, S1 and S2 audible. No murmurs, rubs, or gallops. GI: Soft, nondistended, normal bowel sounds. Extremities:No joint swelling, pedal edema, or tenderness noted. Right foot dressing C/D/I. Left AKA stump without abnormality. Back: Normal inspection. No vertebral tenderness noted. Neurological: Alert, oriented 3, no focal deficits. Psychiatric: normal affect, normal mood. Skin: Dry, intact, warm. Normal color. No rashes. - Assessment and Plan (1) Sepsis Current Visit: Yes Status: Acute The patient had two SIRS criteria on admission. Likely secondary to right foot infection and abscess. Improved. Blood cultures drawn 01/17/19 are NGTD x 2 sets. Qualifiers: Sepsis type: sepsis due to unspecified organism Qualified Code(s): A41.9 - Sepsis, unspecified organism SNOMED Code(s): 92482039 (2) Abscess of right foot Current Visit: Yes Status: Acute CT right foot showed a large ulceration along the plantar soft tissues distally with underlying rim enhancing collection which is difficult to measure given the serpiginous course of the collection. This measures approximately 1.1 x 2.3 x 2.9 cm in greatest dimension. Findings most compatible with abscess. Wound culture positive for corynebacteriium striatum. MRI pending completion. ESR and CRP minimally elevated. Podiatry consulted and following. Currently on PO doxycycline and zosyn. SNOMED Code(s): 55795975267251089 (3) Diabetic foot ulcer Current Visit: Yes Status: Acute Qualifiers: Diabetic foot ulcer location: unspecified part of foot Diabetes mellitus type: type 2 Laterality: right Non-pressure ulcer stage: with fat layer exposed Qualified Code(s): E11.621 - Type 2 diabetes mellitus with foot ulcer; L97.512 - Non-pressure chronic ulcer of other part of right foot with fat layer exposed SNOMED Code(s): 979633403 (4) Status post transmetatarsal amputation of right foot Current Visit: Yes Status: Acute SNOMED Code(s): 281890242 (5) Status post above knee amputation of left lower extremity Current Visit: Yes Status: Acute SNOMED Code(s): 283247561346991, 41643166, 696432576378558 (6) Diabetes mellitus Current Visit: Yes Status: Acute Recommend aggressive glucose monitoring and control to promote wound healing and prevent re-infection. Management per the primary team. 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 Await MRI results. Await further recommendations from the Podiatry team. Continue doxycycline 100mg PO BID. Continue Zosyn 3.375 grams IV Q8H. Duration of treatment depends on the clinical picture. Monitor renal function and dose-adjust antibiotics. Consult Discharge Plan - Plan Referrals: NONE,PCP [Primary Care Provider] - - Attending Attestation I have personally performed a face to face evaluation on this patient. I have reviewed and agree with the care plan. History and Exam by me shows: Assessment and plan: 1.Sepsis 2.Abscesses the right foot causative organism corynebacterium MRI results pending 3.Diabetes mellitus type 2 poorly controlled 4.History of above-knee and station left lower extremity history of forman smetatarsal dictation of the right foot Recommendations wait blood cultures to finalize. Await MRI results. Await further recommendations from the Podiatry team. Continue doxycycline 100mg PO BID. Continue Zosyn 3.375 grams IV Q8H. Duration of treatment depends on the clinical picture. Monitor renal function and dose-adjust antibiotics.
[2019-01-21] MEDS ORDERED: *HR* LORazepam 1 MG TABLET PO ONE (13:32)
[2019-01-21] MEDS: BuPROPion SR (12 HR) 150 MG TABLET PO SCH (20:02)
[2019-01-21] MEDS: Nicotine 14 MG PATCH.TD24 TD SCH (20:03)
[2019-01-22] MEDS: *HR* OxyCODONE Immed Rel 5 MG TABLET PO PRN ×6 (00:13→21:05)
[2019-01-22] MEDS: Piperacillin/Tazobactam 3.375 GM in 0.9 % Sodium Chloride Mini Bag 100 ML IVPB SCH ×3 (00:14→16:20)
[2019-01-22] MEDS: 0.9 % Sodium Chloride 1,000 ML IVC SCH ×5 (03:44→21:05)
[2019-01-22 04:26] LABS: Basophils % 0.8 %; Eosinophils # 0.2 K/mcL (0.0-0.6); Eosinophils % 4.9 %; Hematocrit 36.8 % (37.5-50.1); Hemoglobin 12.4 g/dL (12.9-16.9); Immature Granulocytes % 0.5 % (0-4); Lymphocytes # 1.6 K/mcL (0.6-4.6); Lymphocytes % 42.6 %; Mean Corpuscular HGB Conc 33.7 g/dL (31.6-35.5); Mean Corpuscular Hemoglobin 31.6 pg (28.0-33.3); Mean Corpuscular Volume 93.9 fL (83.0-100.0); Mean Platelet Volume 10.5 fL (9.4-12.4); Monocytes # 0.4 K/mcL (0.0-1.3); Monocytes % 9.9 %; Neutrophils # 1.5 K/mcL (1.6-8.9); Platelet Count 173 K/mcL (140-400); Red Blood Count 3.92 M/mcL (4.19-5.50); Red Cell Distribution Width 11.9 % (11.5-14.5); Segmented Neutrophils % 41.3 %; White Blood Count 3.6 K/mcL (4.3-11.1)
[2019-01-22 04:52] LABS: BUN/Creatinine Ratio 7 (6-26); Blood Urea Nitrogen 7 mg/dL (6-20); Calcium 8.9 mg/dL (8.6-10.3); Carbon Dioxide 26 mEq/L (23-29); Chloride 108 mEq/L (98-107); Glucose 120 mg/dL (70-105); Osmolality,Calculated 289 (280-300); Potassium 3.8 mEq/L (3.5-5.1); Sodium 140 mEq/L (136-145); eGFR For African Americans > 60 (> 60); eGFR For Non-African Americans > 60 (> 60)
[2019-01-22] MEDS: *HR* Heparin 5,000 UNIT/ML VIAL SQ SCH ×2 (05:04→17:06)
[2019-01-22] MEDS: Doxycycline 100 MG CAPSULE PO SCH ×2 (08:39→21:08)
[2019-01-22] MEDS: amLODIPine 5 MG TABLET PO SCH (08:39)
[2019-01-22] MEDS: BuPROPion SR (12 HR) 150 MG TABLET PO SCH ×2 (08:40→21:16)
[2019-01-22] MEDS: Insulin LISPRO 300 UNITS/3 ML VIAL SQ SCH ×4 (09:00→21:05)
--- NOTE | 2019-01-22 09:50 | Event Note ---
Date of Encounter: 01/22/19 Time of Encounter: 09:45 Discussed right foot MRI results and abscess. Need for surgical debridement of wound. Nature of the procedure, risks versus benefits, potential complications, consequences of surgery, and condition discussed. All questions and concerns addressed. Consent signed and placed in chart.
--- NOTE | 2019-01-22 10:35 | Internal Med Progress Note ---
Hospitalist Progress Note - Encounter Date of Encounter: 01/22/19 Time of Encounter: 10:35 - Subjective Interval History: Patient seen and examined this morning at bedside. No acute overnight events. Denies new complaints. Denies any difficulty breathing or chest pain. Is still with right lower extremely soreness and discomfort. Denies any diarrhea or abdominal pain. - Exam Vitals: Temp Pulse Resp BP Pulse Ox 98.1 F 79 17 132/87 98 01/22/19 10:04 01/22/19 10:04 01/22/19 10:04 01/22/19 10:04 01/22/19 10:04 Exam: General: In no acute distress. Respiratory exam: CTAB. no accessory muscle use, rales, rhonchi, wheezes Cardiovascular exam: RRR, +S1, +S2. no murmur, gallop, rubs. GI/Abdominal exam: Non-tender, Non-distended, normal bowel sounds, soft, no peritoneal signs. 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 Dressing in place without soakage. Mild Rt calf soreness. Neurological exam: CN II-XII intact, AO X3, no focal deficits. Skin exam: No skin rash - Assessment and Plan (1) Diabetic foot ulcer Current Visit: Yes Status: Acute (2) Diabetes mellitus Current Visit: Yes Status: Acute (3) DVT prophylaxis Current Visit: Yes Status: Acute - Summary of Assessment and Plan Summary of Assessment and Plan: Assessment Acute Diabetic foot ulcer with abscess Chronic DM HTN Depression Plan - Diabetic foot ulcer with abscess confirmed on MRI. Podiatry following. Plan for surgery today. No DVT on Prelim report. NPO. c/w pain control. - Wound growing corynebacterium striatum. Had BETHANY with vancomycin in past. on doxycycline and zosyn per ID. Recommendation appreciated. - c/w home antidepressant - DM well controlled with a1c of 6.7. On levemir and aspart at home. c/w Accuchecks and Sliding scale. - heparin for DVT ppx. Internal Medicine: Result - Labs CBC & Chem 7: 01/22/19 03:38 01/22/19 03:38 Labs: Short CBC 01/22/19 Range/Units 03:38 WBC 3.6 L (4.3-11.1) K/mcL Hgb 12.4 L (12.9-16.9) g/dL Hct 36.8 L (37.5-50.1) % Plt Count 173 (140-400) K/mcL Neutrophils # 1.5 L (1.6-8.9) K/mcL BMP 01/22/19 03:38 Sodium 140 Potassium 3.8 Chloride 108 H Carbon Dioxide 26 BUN 7 Creatinine 1.05 Glucose 120 H Calcium 8.9 - ABG Interpretation ABG results: PT/INR, D-dimer PT 12.4 Seconds (9.4-12.1) H 01/19/19 01:46 - Impressions Impressions Foot MRI 01/21/19 16:32 IMPRESSION: 1. Rim enhancing fluid collection just deep to the plantar ulceration which measures 0.8 x 1.8 x 2.5 cm. Findings most compatible with abscess. 2. No evidence for acute osseous abnormality or osteomyelitis this time. 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
--- NOTE | 2019-01-22 12:07 | Infectious Disease Progress No ---
ID Progress Note Date of Encounter: 01/22/19 Time of Encounter: 12:05 - Subjective Subjective: Patient seen and examined. No acute events noted overnight. Denies fevers, chills, or rigors. Denies chest pain, shortness of breath, or cough. Denies vomiting or diarrhea. Reports some intermittent nausea. Denies vomiting, diarrhea, or constipation. Reports last BM yesterday. Denies pain at this time. States he feels weak because his glucose is lower than he is used to. NPO for surgery later today. - Objective CBC & Chem 7: 01/22/19 03:38 01/22/19 03:38 - Exam Vitals: Temp Pulse Resp BP Pulse Ox 98.1 F 79 17 132/87 98 01/22/19 10:04 01/22/19 10:04 01/22/19 10:04 01/22/19 10:04 01/22/19 10:04 Exam: Head: Atraumatic, normal inspection, normocephalic. Eye: EOMI, PERRLA, no scleral icterus noted. ENT: Mucous membranes moist. No odontogenic infection noted. Neck: Normal inspection, no meningismus. Respiratory: Clear to auscultation. No rales, respiratory distress, rhonchi, or wheezes noted. Cardiovascular: Regular rate and rhythm, S1 and S2 audible. No murmurs, rubs, or gallops. GI: Soft, nondistended, normal bowel sounds. Extremities:No joint swelling, pedal edema, or tenderness noted. Right foot dressing C/D/I. Left AKA stump without abnormality. Back: Normal inspection. No vertebral tenderness noted. Neurological: Alert, oriented 3, no focal deficits. Psychiatric: normal affect, normal mood. Skin: Dry, intact, warm. Normal color. No rashes. - Assessment and Plan (1) Sepsis Current Visit: Yes Status: Acute The patient had two SIRS criteria on admission. Likely secondary to right foot infection and abscess. Improved. Blood cultures drawn 01/17/19 are negative x 2 sets. Qualifiers: Sepsis type: sepsis due to unspecified organism Qualified Code(s): A41.9 - Sepsis, unspecified organism SNOMED Code(s): 67511992 (2) Abscess of right foot Current Visit: Yes Status: Acute CT right foot showed a large ulceration along the plantar soft tissues distally with underlying rim enhancing collection which is difficult to measure given the serpiginous course of the collection. This measures approximately 1.1 x 2.3 x 2.9 cm in greatest dimension. Findings most compatible with abscess. Wound culture positive for corynebacteriium striatum. MRI positive for abscess. ESR and CRP minimally elevated. Podiatry consulted and following.Planning operative debridement later today. Currently on PO doxycycline and zosyn. SNOMED Code(s): 52807949114136176 (3) Diabetic foot ulcer Current Visit: Yes Status: Acute Qualifiers: Diabetic foot ulcer location: unspecified part of foot Diabetes mellitus type: type 2 Laterality: right Non-pressure ulcer stage: with fat layer exposed Qualified Code(s): E11.621 - Type 2 diabetes mellitus with foot ulcer; L97.512 - Non-pressure chronic ulcer of other part of right foot with fat layer exposed SNOMED Code(s): 591283637 (4) Status post transmetatarsal amputation of right foot Current Visit: Yes Status: Acute SNOMED Code(s): 619257418 (5) Status post above knee amputation of left lower extremity Current Visit: Yes Status: Acute SNOMED Code(s): 343936774926916, 95357460, [id number] (6) Diabetes mellitus Current Visit: Yes Status: Acute Recommend aggressive glucose monitoring and control to promote wound healing and prevent re-infection. Management per the primary team. 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 Continue doxycycline 100mg PO BID. Continue Zosyn 3.375 grams IV Q8H. Duration of treatment depends on the clinical picture. Monitor renal function and dose-adjust antibiotics. Consult Discharge Plan - Plan Referrals: Miriam Briceno, LICENSED LIFE AND HEALTH AGENT [Advanced Practice Nurse] - - Attending Attestation I have personally performed a face to face evaluation on this patient. I have reviewed and agree with the care plan. History and Exam by me shows: Assessment and plan: 1.Sepsis 2.Abscesses the right foot causative organism corynebacterium MRI results noted 3.Diabetes mellitus type 2 poorly controlled 4.History of above-knee and station left lower extremity history of tr ansmetatarsal dictation of the right foot Recommendations Await intra-op cultures and findings. Continue doxycycline 100mg PO BID. Continue Zosyn 3.375 grams IV Q8H. Duration of treatment depends on the clinical picture. Monitor renal function and dose-adjust antibiotics.
[2019-01-22] MEDS ORDERED: Lidocaine 1% 20 ML MDV ONE (18:10)
--- NOTE | 2019-01-22 18:44 | Anesthesia Evaluation PreOp ---
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 History: Other (anxiety, depression) Other Medical History: Diabetes Type II Anesthesia History: No Prior Anesthetic Complications, Past Anesthesia (L aka, R foot transmetatarsal amputation) Alcohol Use: none Drug use: none, marijuana Medications and Allergies Insulin ASPART [NovoLOG] 0 unit SQ TIDWM 11/25/18 [History] Omeprazole [PriLOSEC] 40 mg PO DAILY 11/25/18 [History] amLODIPine [Norvasc] 5 mg PO DAILY 11/25/18 [History] BuPROPion SR (12 HR) [Wellbutrin SR] 150 mg PO BID 01/19/19 [History] Citalopram [CeleXA] 20 mg PO DAILY 01/19/19 [History] Insulin DETEMIR [Levemir Flextouch] 42 unit SQ HS 01/19/19 [History] Quetiapine Fumarate [SEROquel] 25 mg PO HS 01/19/19 [History] Allergy/AdvReac Type Severity Reaction Status Date / Time vancomycin AdvReac See Verified 01/19/19 16:44 Comments - Meds/Allergy Pre-op Review Medications Reviewed: Yes Allergies Reviewed: Yes Beta Blockers on Current Med List: No Anesthesia Results - Labs 01/22/19 03:38 01/22/19 03:38 Anesthesia Exam Vital Signs/O2 Sat, Most Current Temp Pulse Resp BP Pulse Ox 98.1 F 75 16 130/83 97 01/22/19 14:19 01/22/19 14:19 01/22/19 14:19 01/22/19 14:01/22/19 14: Weight: 97kg NPO (# of Hours): >8 - HEENT Pupil (Motor): Pupils equal, EOMI Mallampati: III Teeth: Missing, Poor dentition - LANE MARKER INSTALLER LOC: Oriented LANE MARKER INSTALLER Motor: Normal RUE, Normal LUE, Normal RLE, Normal Face, Deficit LLE (L aka) LANE MARKER INSTALLER Sensory: Normal: RUE, LUE, RLE, LLE, Face - Cardiac Rhythm: Regular - Pulmonary Breath Sounds: bilateral Clear Respiratory Effort: Symmetrical Anesthesia Assess/Plan ASA Score: 3 Level of consciousness: Cooperative Anesthetic Plan: General, MAC Monitoring Plan: Standard Monitors Recovery Plan: PACU
[2019-01-22] MEDS ORDERED: *HR* OxyCODONE Immed Rel 5 MG TABLET PO PRN ×2 (18:50→20:01)
[2019-01-22] MEDS ORDERED: *HR* Midazolam HCl 2 MG/2 ML VIAL ONE (18:50)
[2019-01-22] MEDS ORDERED: *HR* FentaNYL (PF) 100 MCG/2 ML VIAL IVP PRN ×2 (18:50→20:01)
[2019-01-22] MEDS ORDERED: *HR* FentaNYL (PF) 100 MCG/2 ML VIAL ONE (18:50)
[2019-01-22] MEDS ORDERED: Ondansetron 4 MG/2 ML VIAL IVP ONE ×2 (18:50→20:01)
[2019-01-22] MEDS ORDERED: *HR* Promethazine 25 MG/ML VIAL IVP PRN ×2 (18:50→20:01)
[2019-01-22] MEDS ORDERED: *HR* Meperidine 25 MG/ML SYRINGE IVP PRN ×2 (18:50→20:01)
[2019-01-22] MEDS ORDERED: *HR* Propofol 200 MG/20 ML VIAL IVP ONE (18:51)
--- NOTE | 2019-01-22 19:28 | Orthopedic Operative Note ---
Date of procedure: 01/22/19 Pre-op diagnosis: right foot ulcer, abscess Post-op diagnosis: same Procedure: 01/22/19 19:27 1. Incision and drainage below fascia right foot Implants: None Complications: None Anesthesia: MAC, local Surgeon: Tylor Schroeder Was there an advertising sales assistant present: No Estimated blood loss (cc): 1 Tourniquet Time (Minutes): 0 Specimen: wound culture to micro Condition: stable Disposition: floor Procedure in Detail: 01/23/19 06:58 INDICATIONS AND CONSENT Mr. Hickman is a 33 year old male with a history left below knee amputation and right transmetatarsal amputation presenting with a chronic wound to the right plantar and lateral foot. He reported getting wound care at a different facility prior to admission. MRI showed evidence of a fluid collection suggesting abscess at the plantar foot wound. It appeared that the wound was healing with granular tissue over a developing abscess. Incision and drainage was warranted. We discussed the above procedures in detail. This included a discussion on the indications, contraindications, and possible complications including but not limited to: infection, non-healing wound, pain, swelling, bleeding, blood clots, heart complications, nerve injury, tendon injury, vascular injury, loss of limb, loss of life, and need for further surgery. We also reviewed the expected post operative course, including a discussion on the non-weightbearing status after this procedure. He related understanding of our discussion regarding this surgery. All questions were answered to his satisfaction, and a proper written informed consent was obtained, signed, and placed in the chart. No guarantees were given, stated or implied, as to the outcome of this procedure. PROCEDURE IN DETAIL The patient was seen in the pre-operative holding area by Anesthesia, where he was consented for MAC with local block. The patient was then brought back to the operative suite and placed on the operating room table in the supine position. A sign-in was performed. MAC was then initiated per Anesthesia protocol. Next, the right lower leg was scrubbed, prepped, and draped in the usual aseptic manner. A [place] Time-Out was performed, and all parties in the room agreed. A total of 2.5mL of 1% lidocaine plain and 2.5mL of 0.5% marcaine plain was injected to the plantar right foot ulcer. A 15 blade was used to make a 3 cm linear incision at the plantar foot ulcer below the level of fascia. The incision was carried to the deep plantar musculature to the level of abscess. Approximately 1cm of serous fluid was evacuated. This was sent to micro for culture. The wound did not probe to bone or tunnel in any direction. The wound was irrigated with 3 liters of normal saline using cysto tubing. The wound was packed with iodoform packing tape with plans to apply negative pressure wound therapy in the next 24- 48 hours. A dry, sterile dressing was then applied, which consisted of: xeroform, 4x4's, Kerlix fluffs, ABDs, and Kerlix roll with OLGA wrap. Capillary refill time of the toes on the right foot was also noted to be brisk at this time. A sign-out was performed. The patient tolerated anesthesia and the procedure well, and was transferred to PAC-U with vital signs stable and vascular status intact to the right lower extremity. Needle and sponge counts were correct X 2 at the end of the case. Dr. Tylor Schroeder was present, scru bbed, and participated in all vital aspects of the procedure. After a brief stay in PAC-U, the patient will be admitted back to the floor for continued monitoring.
--- NOTE | 2019-01-22 19:59 | Anesthesia Evaluation Post Op ---
Date of Encounter: 01/22/19 Time of Encounter: 19:58 - Vital Signs Vital Signs: see nursing notes - Lungs Lungs: Clear Ascult./Percussion - Airway Airway: Non-obstructed - Cardiovascular Regular Rate - Mental Status Mental Status: Alert & Oriented, Answers Appropriately - Pain Pain Scale: 0 Pain Scale used: Numeric (1 - 10) - Nausea Vomiting Nausea Vomiting: Not Present - Hydration Hydration: Tolerates oral liquids - Discharge PostOp Status: Transfer Patient to floor
[2019-01-22] MEDS ORDERED: Ketorolac 30 MG/ML VIAL IVP PRN (20:01)
[2019-01-22] MEDS ORDERED: Dextrose Gel 15 GM/37.5 ML TUBE PO PRN ×2 (20:01)
[2019-01-22] MEDS ORDERED: *HR* Dextrose 50 % in Water (Syg) 50 ML SYRINGE IVP PRN (20:01)
[2019-01-22] MEDS ORDERED: D5% in Water 1,000 ML IVC PRN (20:01)
[2019-01-22] MEDS ORDERED: Naloxone 0.4 MG/ML INJ IVP PRN (20:01)
[2019-01-22] MEDS: Nicotine 14 MG PATCH.TD24 TD SCH (21:09)
[2019-01-23] MEDS: Piperacillin/Tazobactam 3.375 GM in 0.9 % Sodium Chloride Mini Bag 100 ML IVPB SCH ×3 (01:12→16:55)
[2019-01-23] MEDS: *HR* OxyCODONE Immed Rel 5 MG TABLET PO PRN ×6 (01:13→23:00)
[2019-01-23] MEDS: *HR* Heparin 5,000 UNIT/ML VIAL SQ SCH ×2 (05:22→16:54)
[2019-01-23] MEDS: 0.9 % Sodium Chloride 1,000 ML IVC SCH ×2 (05:23→16:54)
[2019-01-23] MEDS: Insulin LISPRO 300 UNITS/3 ML VIAL SQ SCH ×4 (07:47→20:42)
[2019-01-23] MEDS: Doxycycline 100 MG CAPSULE PO SCH ×2 (07:48→20:41)
[2019-01-23] MEDS: amLODIPine 5 MG TABLET PO SCH (07:48)
--- NOTE | 2019-01-23 07:57 | Internal Med Progress Note ---
Hospitalist Progress Note - Encounter Date of Encounter: 01/23/19 Time of Encounter: 07:57 - Subjective Interval History: Patient seen and examined this morning in this. No acute on events. Denies fevers chills nausea vomiting or diarrhea. Has right foot pain slightly more than yesterday. Denies any difficulty breathing chest pain or irregular compl aint. - Exam Vitals: Temp Pulse Resp BP Pulse Ox 97.6 F 87 15 137/87 99 01/23/19 07:44 01/23/19 07:44 01/23/19 07:44 01/23/19 07:44 01/23/19 07:44 Exam: General: In no acute distress. Respiratory exam: CTAB. no accessory muscle use, rales, rhonchi, wheezes Cardiovascular exam: RRR, +S1, +S2. no murmur, gallop, rubs. GI/Abdominal exam: Non-tender, Non-distended, normal bowel sounds, soft, no peritoneal signs. Extremities exam: trace pedal edema on Rt, Has Lt BKA with prosthesis. Rt foot wotj dressing in place with miniaml soakage. Neurological exam: CN II-XII intact, AO X3, no focal deficits. Skin exam: No skin rash - Assessment and Plan (1) Diabetic foot ulcer Current Visit: Yes Status: Acute (2) Diabetes mellitus Current Visit: Yes Status: Acute (3) DVT prophylaxis Current Visit: Yes Status: Acute - Summary of Assessment and Plan Summary of Assessment and Plan: Assessment Acute Diabetic foot ulcer with abscess Chronic DM HTN Depression Plan - Diabetic foot ulcer with abscess confirmed on MRI. Podiatry following. s/p abscess I&D yesterday. Await intraopt cultures. NO DVT on Prelim report. c/w pain control. - Wound growing corynebacterium striatum. sensitivity not performed. Had BETHANY with vancomycin in past. c/w doxycycline and zosyn per ID. Recommendation appreciated. - c/w home antidepressant - DM well controlled with a1c of 6.7. On levemir and aspart at home. c/w Accuchecks and Sliding scale. - heparin for DVT ppx. Internal Medicine: Result - Labs CBC & Chem 7: 01/22/19 03:38 01/22/19 03:38 - ABG Interpretation ABG results: PT/INR, D-dimer PT 12.4 Seconds (9.4-12.1) H 01/19/19 01:46 - Impressions Impressions Knee X-Ray 01/21/19 07:09 IMPRESSION: 1. Metallic fragments in the anterior distal thigh and in the amputation stump soft tissues. D/ / 01/21/2019 07:50:02 Tex Lopez MD / lucy Interpreting Provider: Tex Lopez MD Consult Discharge Plan - Plan Referrals: Miriam Briceno, DIRECTOR OF PUBLIC HEALTH [Advanced Practice Nurse] - (1) Diabetic foot ulcer Qualifiers: Diabetic foot ulcer location: unspecified part of foot Diabetes mellitus type: type 2 Laterality: right Non-pressure ulcer stage: with fat layer exposed Qualified Code(s): E11.621 - Type 2 diabetes mellitus with foot ulcer; L97.512 - Non-pressure chronic ulcer of other part of right foot with fat layer exposed (2) Diabetes mellitus Qualifiers: Diabetes mellitus type: type 2 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
--- NOTE | 2019-01-23 09:36 | Infectious Disease Progress No ---
ID Progress Note Date of Encounter: 01/23/19 Time of Encounter: 09:35 - Subjective Subjective: Patient seen and examined. No acute events noted overnight. Denies fevers, chills, or rigors. Denies chest pain, shortness of breath, or cough. Denies vomiting or diarrhea. Reports some intermittent nausea. Reports last BM this morning. Complains of pain in the right foot. Denies oral thrush or skin rashes. States appetite is good. - Objective CBC & Chem 7: 01/22/19 03:38 01/22/19 03:38 - Exam Vitals: Temp Pulse Resp BP Pulse Ox 97.6 F 87 15 137/87 99 01/23/19 07:44 01/23/19 07:44 01/23/19 07:44 01/23/19 07:44 01/23/19 07:44 Exam: Head: Atraumatic, normal inspection, normocephalic. Eye: EOMI, PERRLA, no scleral icterus noted. ENT: Mucous membranes moist. No odontogenic infection noted. Neck: Normal inspection, no meningismus. Respiratory: Clear to auscultation. No rales, respiratory distress, rhonchi, or wheezes noted. Cardiovascular: Regular rate and rhythm, S1 and S2 audible. No murmurs, rubs, or gallops. GI: Soft, nondistended, normal bowel sounds. Extremities:No joint swelling, pedal edema, or tenderness noted. Right foot dressing C/D/I. Left AKA stump without abnormality. Back: Normal inspection. No vertebral tenderness noted. Neurological: Alert, oriented 3, no focal deficits. Psychiatric: normal affect, normal mood. Skin: Dry, intact, warm. Normal color. No rashes. - Assessment and Plan (1) Sepsis Current Visit: Yes Status: Acute The patient had two SIRS criteria on admission. Likely secondary to right foot infection and abscess. Resolved. Blood cultures drawn 01/17/19 are negative x 2 sets. Qualifiers: Sepsis type: sepsis due to unspecified organism Qualified Code(s): A41.9 - Sepsis, unspecified organism SNOMED Code(s): 08996933 (2) Abscess of right foot Current Visit: Yes Status: Acute CT right foot showed a large ulceration along the plantar soft tissues distally with underlying rim enhancing collection which is difficult to measure given the serpiginous course of the collection. This measures approximately 1.1 x 2.3 x 2.9 cm in greatest dimension. Findings most compatible with abscess. Wound culture positive for corynebacteriium striatum. MRI positive for abscess. ESR and CRP minimally elevated. Podiatry consulted and following. Status post I & D 01/22/[address] Schroeder. Intra-op cultures pending. Currently on PO doxycycline and zosyn. SNOMED Code(s): 85350002471157875 (3) Diabetic foot ulcer Current Visit: Yes Status: Acute Qualifiers: Diabetic foot ulcer location: unspecified part of foot Diabetes mellitus type: type 2 Laterality: right Non-pressure ulcer stage: with fat layer exposed Qualified Code(s): E11.621 - Type 2 diabetes mellitus with foot ulcer; L97.512 - Non-pressure chronic ulcer of other part of right foot with fat layer exposed SNOMED Code(s): 340414140 (4) Status post transmetatarsal amputation of right foot Current Visit: Yes Status: Acute SNOMED Code(s): 996198820 (5) Status post above knee amputation of left lower extremity Current Visit: Yes Status: Acute SNOMED Code(s): 760198482071255, 29549996, [id number] (6) Diabetes mellitus Current Visit: Yes Status: Acute Recommend aggressive glucose monitoring and control to promote wound healing and prevent re-infection. Management per the primary team. Qualifiers: Diabetes mellitus type: type 2 Diabetes mellitus detention insulin use: with detention use Diabetes mellitus complication status: with skin complications Diabetes mellitus complication detail: with foot ulcer Qualified Code(s): E11.621 - Type 2 diabetes mellitus with foot ulcer; L97.509 - Non-pressure chronic ulcer of other part of unspecified foot with unspecified severity; Z79.4 - halfway (current) use of insulin SNOMED Code(s): 86703126 - Recommendations Recommendations: Await intra-op cultures. Wound care per Podiatry. Continue doxycycline 100mg PO BID. Continue Zosyn 3.375 grams IV Q8H. Duration of treatment depends on the clinical picture. Monitor renal function and dose-adjust antibiotics. Consult Discharge Plan - Plan Referrals: Miriam Briceno, PRINTING SALES REPRESENTATIVE [Advanced Practice Nurse] - - Attending Attestation I have personally performed a face to face evaluation on this patient. I have reviewed and agree with the care plan. History and Exam by me shows: Assessment and plan: 1.Sepsis 2.Abscesses the right foot causative organism corynebacterium MRI results noted; S/P Incision and drainage below fascia right foot 01/22 3.Diabetes mellitus type 2 poorly controlled 4.History of above-knee and station left lower extremity history of transmetatarsal dictation of the right foot Recommendations: Await intra-op cultures. Wound care per Podiatry. Continue doxycycline 100mg PO BID. Continue Zosyn 3.375 grams IV Q8H. Duration of treatment depends on the clinical picture. Monitor renal function and dose-adjust antibiotics.
[2019-01-23] MEDS: BuPROPion SR (12 HR) 150 MG TABLET PO SCH ×2 (09:56→20:41)
--- NOTE | 2019-01-23 15:09 | Podiatry Progress Note ---
Date of Encounter: 01/23/19 Time of Encounter: 15:07 - Assessment and Plan (1) Diabetic foot ulcer Current Visit: Yes Status: Acute Assessment: S/P incision and drainage below fascia right foot with Dr. Schroeder on 01/22/19, measuring 1.5 x 1 x 0.2 with tunneling noted to center of wound 2.3 cm Cheney grade II ulceration right lateral foot, right plantar foot Unstageable ulceration right posterior achilles tendon No erythema noted to plantar aspect of foot WBC 3.5 yesterday, no labs today, ESR 21, CRP 24 CT suggestive of abscess XR negative for OM Wound culture positive for coryneabacterium Blood cultures pending, Intra-op cultures pending Venous duplex negative Plan: Wound vac placed, TTHS schedule ID consulted- recommendations appreciated Dressing changed, see below coordinator volunteer services to help with home care/ECF placement for vac Cleansed right foot with 0.9 NS. Prepped skin with skin prep. Placed tegaderm drape in window pane fashion. Placed black granulafoam to wound bed and tunneling. Covered with tegaderm drape. Placed to suction at -125 mmHG. Good seal noted. Calcium alginate placed to right lateral ulceration, Secured with drain sponge, kerlix, and medipore tape Impression: CT/CT foot RT w con IMPRESSION: 1. Image quality is significantly degraded secondary to motion artifact. 2. Large ulceration along the plantar soft tissues distally with underlying rim enhancing collection which is difficult to measure given the serpiginous course of the collection. This measures approximately 1.1 x 2.3 x 2.9 cm in greatest dimension. Findings most compatible with abscess. 3. No definite CT evidence for osteomyelitis within limits of the current exam. D/ / Diallo Burns MD / Diallo Burns MD Interpreting Provider: Diallo Burns MD R #: [id number] XR/XR foot 3V RT IMPRESSION: Large ulceration along the plantar aspect of the foot anteriorly. No retained foreign body is identified (although some forms of glass will be radiolucent). There is associated soft tissue swelling. No radiographic evidence of osteomyelitis identified, however. D/ / Gadiel Carballo MD / Gadiel Carballo MD Interpreting Provider: Gadiel Carballo MD R #: [id number] MR/ foot RT wo/w con IMPRESSION: 1. Rim enhancing fluid collection just deep to the plantar ulceration which measures 0.8 x 1.8 x 2.5 cm. Findings most compatible with abscess. 2. No evidence for acute osseous abnormality or osteomyelitis this time. D/ / Diallo Burns MD / Diallo Burns MD Interpreting Provider: Diallo Burns MD Qualifiers: Diabetic foot ulcer location: unspecified part of foot Diabetes mellitus type: type 2 Laterality: right Non-pressure ulcer stage: with fat layer exposed Qualified Code(s): E11.621 - Type 2 diabetes mellitus with foot ulcer; L97.512 - Non-pressure chronic ulcer of other part of right foot with fat layer exposed Subjective Principal diagnosis: Right foot ulcer Interval history: Patient awake in bed. Alert and oriented x 3. Denies any fevers, chills, nausea, vomiting, and diarrhea. Denies chest pain, calf pain, and shortness of breath. Denies any overnight events. No other questions or concerns at this time. Objective - Vital Signs Vital Signs: Vital Signs Temp Pulse Resp BP Pulse Ox 01/23/19 11:14 98.1 F 86 15 124/80 97 01/23/19 07:44 97.6 F 87 15 137/87 99 01/23/19 02:54 97.8 F 79 17 111/74 100 01/22/19 22:58 97.8 F 74 121/76 99 01/22/19 22:30 98.1 F 80 16 136/89 99 01/22/19 20:30 98.7 F 88 16 131/89 99 01/22/19 20:00 98.6 F 105 16 123/87 100 Intake and Output 01/22/19 01/23/19 01/23/19 23:59 07:59 15:59 Intake Total 1200 / 2400 1100 / 1320 220 / 1320 Output Total 1 1751 850 / 850 Balance 1199 / 649 250 / 470 220 / 470 Intake: IV Fluids 1200 / 2400 1100 / 1200 100 / 1200 0.9 % Sodium Chloride 1,000 ML 1100 / 2100 1000 / 1000 @ 100 mls/hr IVC .Q10H EDUARDO Rx#: [id number] Zosyn 3.375 GM In 0.9 % Sodium 100 / 300 100 / 200 100 / 200 Chloride (Mini-Bag +) 100 ML @ 25 mls/hr IVPB Q8HR EDUARDO Rx#: [id number] Oral 0 / 0 120 / 120 Output: Urine 850 / 850 Estimated Blood Loss Other: Meal Dinner Lunch Percent of Meal Consumed 0% 100% # Voids 1 Weight 96 kg Blood Glucose* 128 83 140 Patient Weight 01/23/19 23:59 Weight 96 kg - Exam Exam: Constitiutional: Alert and oriented x 3. Agitated. Well nourished. No acute distress noted Vascular: Faint DP/PT RLE, Right TMA, L BKA, warm to warm from tibia to stump RLE, calf pain with squeeze RLE Neurologic: Absent sensation to touch, normal plantar response Dermatologic: Cheney grade II ulceration noted to right plantar midfoot and right lateral 5th metatarsal, right plantar ulcer with tunneling noted. unstageable ulcer noted to right achilles tendon area with areas of eschar noted, no erythema noted to surrounding tissue Musculoskeletal: 3/5 muscle strength and normal tone bilaterally. - Lab Result Diagrams: 01/22/19 03:38 01/22/19 03:38 Labs: Abnormal lab results WBC 3.6 K/mcL (4.3-11.1) L 01/22/19 03:38 RBC 3.92 M/mcL (4.19-5.50) L 01/22/19 03:38 Hgb 12.4 g/dL (12.9-16.9) L 01/22/19 03:38 Hct 36.8 % (37.5-50.1) L 01/22/19 03:38 Neutrophils # 1.5 K/mcL (1.6-8.9) L 01/22/19 03:38 ESR 21 mm/hr (0-10) H 01/20/19 12:19 PT 12.4 Seconds (9.4-12.1) H 01/19/19 01:46 Chloride 108 mEq/L (98-107) H 01/22/19 03:38 Glucose 120 mg/dL (70-105) H 01/22/19 03:38 POC Glucose 140 mg/dL (70-99) H 01/23/19 11:08 Hemoglobin A1c 6.7 % (-5.6) H 01/19/19 01:46 C-Reactive Protein 24 mg/L (Less than 10) H 01/20/19 12:19 Microbiology, Last 48 Hours 01/22/19 19:23 Wound Culture - Preliminary Right Foot Culture is incubating. 01/22/19 19:23 Anaerobic Culture - Preliminary Right Foot Culture is incubating. 01/22/19 11:55 Blood Culture - Preliminary Peripheral Venipuncture Culture is incubating and being continuously monitored for growth. Final report to follow. 01/22/19 11:46 Blood Culture - Preliminary Peripheral Venipuncture Culture is incubating and being continuously monitored for growth. Final report to follow. Consult Discharge Plan - Plan Referrals: Miriam Briceno, CONTACT CENTER ASSISTANT [Advanced Practice Nurse] -
[2019-01-23] MEDS: Nicotine 14 MG PATCH.TD24 TD SCH (20:40)
[2019-01-24] MEDS: Piperacillin/Tazobactam 3.375 GM in 0.9 % Sodium Chloride Mini Bag 100 ML IVPB SCH ×4 (00:20→23:14)
[2019-01-24] MEDS: 0.9 % Sodium Chloride 1,000 ML IVC SCH ×3 (03:14→23:15)
[2019-01-24] MEDS: *HR* OxyCODONE Immed Rel 5 MG TABLET PO PRN ×5 (03:20→20:29)
[2019-01-24] MEDS: *HR* Heparin 5,000 UNIT/ML VIAL SQ SCH ×2 (06:30→17:25)
[2019-01-24] MEDS: Insulin LISPRO 300 UNITS/3 ML VIAL SQ SCH ×4 (07:30→20:32)
[2019-01-24] MEDS: BuPROPion SR (12 HR) 150 MG TABLET PO SCH ×2 (07:34→20:29)
[2019-01-24] MEDS: Doxycycline 100 MG CAPSULE PO SCH ×2 (07:34→20:29)
[2019-01-24] MEDS: amLODIPine 5 MG TABLET PO SCH (07:35)
--- NOTE | 2019-01-24 09:20 | Internal Med Progress Note ---
Hospitalist Progress Note - Encounter Date of Encounter: 01/24/19 Time of Encounter: 09:20 - Subjective Interval History: Patient seen and examined this morning and which appeared no acute overnight events. Denies new complaints. Denies any fever or chills nausea vomiting or diarrhea. Right leg pain decreased. Denies any chest pain or difficulty devon athing - Exam Vitals: Temp Pulse Resp BP Pulse Ox 97.8 F 87 18 136/92 100 01/24/19 07:00 01/24/19 07:00 01/24/19 07:00 01/24/19 07:00 01/24/19 07:40 Exam: General: In no acute distress. Respiratory exam: CTAB. no accessory muscle use, rales, rhonchi, wheezes Cardiovascular exam: RRR, +S1, +S2. no murmur, gallop, rubs. GI/Abdominal exam: Non-tender, Non-distended, normal bowel sounds, soft, no peritoneal signs. Extremities exam: Has Lt BKA with prosthesis. Rt foot woth dressing in place with minimal soakage, has TMA Neurological exam: CN II-XII intact, AO X3, no focal deficits. Skin exam: No skin rash - Assessment and Plan (1) Diabetic foot ulcer Current Visit: Yes Status: Acute (2) Diabetes mellitus Current Visit: Yes Status: Acute (3) DVT prophylaxis Current Visit: Yes Status: Acute - Summary of Assessment and Plan Summary of Assessment and Plan: Assessment Acute Diabetic foot ulcer with abscess Chronic DM HTN Depression Plan - Diabetic foot ulcer with abscess confirmed on MRI. s/p abscess I&D 01/22. Await final intraopt cultures. NO DVT on Prelim report. c/w pain control. - Wound growing corynebacterium striatum. Had BETHANY with vancomycin in past. c/w doxycycline and zosyn per ID. Recommendation appreciated. Will wait for final sensitivity. - c/w home antidepressant - DM well controlled with a1c of 6.7. On levemir and aspart at home. c/w Accuchecks and Sliding scale. - heparin for DVT ppx. Internal Medicine: Result - Labs CBC & Chem 7: 01/22/19 03:38 01/22/19 03:38 - ABG Interpretation ABG results: PT/INR, D-dimer PT 12.4 Seconds (9.4-12.1) H 01/19/19 01:46 Consult Discharge Plan - Plan Referrals: Miriam Briceno, CAKE MAKER [Advanced Practice Nurse] - (1) Diabetic foot ulcer Qualifiers: Diabetic foot ulcer location: unspecified part of foot Diabetes mellitus type: type 2 Laterality: right Non-pressure ulcer stage: with fat layer exposed Qualified Code(s): E11.621 - Type 2 diabetes mellitus with foot ulcer; L97.512 - Non-pressure chronic ulcer of other part of right foot with fat layer exposed (2) Diabetes mellitus Qualifiers: Diabetes mellitus type: type 2 Diabetes mellitus terminal computer operator insulin use: with senior care use Diabetes mellitus complication status: with skin complications Diabetes mellitus complication detail: with foot ulcer Qualified Code(s): E11.621 - Type 2 diabetes mellitus with foot ulcer; L97.509 - Non-pressure chronic ulcer of other part of unspecified foot with unspecified severity; Z79.4 - residential (current) use of insulin
--- NOTE | 2019-01-24 10:04 | Infectious Disease Progress No ---
ID Progress Note Date of Encounter: 01/24/19 Time of Encounter: 10:02 - Subjective Subjective: Patient seen and examined. No acute events noted overnight. Denies fevers, chills, or rigors. Denies chest pain, shortness of breath, or cough. Denies vomiting or diarrhea. Reports some intermittent nausea. Reports last BM yesterday. Complains of pain in the right foot. Denies oral thrush or skin rashes. States appetite is good. - Objective CBC & Chem 7: 01/25/19 04:59 01/25/19 04:59 - Exam Vitals: Temp Pulse Resp BP Pulse Ox 97.8 F 87 18 136/92 100 01/24/19 07:00 01/24/19 07:00 01/24/19 07:00 01/24/19 07:00 01/24/19 07:40 Exam: Head: Atraumatic, normal inspection, normocephalic. Eye: EOMI, PERRLA, no scleral icterus noted. ENT: Mucous membranes moist. No odontogenic infection noted. Neck: Normal inspection, no meningismus. Respiratory: Clear to auscultation. No rales, respiratory distress, rhonchi, or wheezes noted. Cardiovascular: Regular rate and rhythm, S1 and S2 audible. No murmurs, rubs, or gallops. GI: Soft, nondistended, normal bowel sounds. Extremities:No joint swelling, pedal edema, or tenderness noted. Right foot dr knott C/D/I with wound VAC noted. No drainage in the canister, no leak. Left AKA stump without abnormality. Back: Normal inspection. No vertebral tenderness noted. Neurological: Alert, oriented 3, no focal deficits. Psychiatric: normal affect, normal mood. Skin: Dry, intact, warm. Normal color. No rashes. - Assessment and Plan (1) Sepsis Current Visit: Yes Status: Acute The patient had two SIRS criteria on admission. Likely secondary to right foot infection and abscess. Improved. Blood cultures drawn 01/17/19 are negative x 2 sets. Qualifiers: Qualified Code(s): A41.9 - Sepsis, unspecified organism SNOMED Code(s): 77428782 (2) Abscess of right foot Current Visit: Yes Status: Acute CT right foot showed a large ulceration along the plantar soft tissues distally with underlying rim enhancing collection which is difficult to measure given the serpiginous course of the collection. This measures approximately 1.1 x 2.3 x 2.9 cm in greatest dimension. Findings most compatible with abscess. Wound culture positive for corynebacteriium striatum. MRI positive for abscess. ESR and CRP minimally elevated. Podiatry consulted and following. Status post I & D 01/22/[address] Schroeder. Intra-op cultures no growth. Currently on PO doxycycline and zosyn. SNOMED Code(s): 32453065136126011 (3) Diabetic foot ulcer Current Visit: Yes Status: Inactive Qualifiers: Qualified Code(s): E11.621 - Type 2 diabetes mellitus with foot ulcer; L97.512 - Non-pressure chronic ulcer of other part of right foot with fat layer exposed SNOMED Code(s): 446992685 (4) Status post transmetatarsal amputation of right foot Current Visit: Yes Status: Acute SNOMED Code(s): 444834465 (5) Status post above knee amputation of left lower extremity Current Visit: Yes Status: Acute SNOMED Code(s): 708428592060676, 74533391, [id number] (6) Diabetes mellitus Current Visit: Yes Status: Acute Recommend aggressive glucose monitoring and control to promote wound healing and prevent re-infection. Management per the primary team. Qualifiers: Qualified Code(s): E11.621 - Type 2 diabetes mellitus with foot ulcer; L97.509 - Non-pressure chronic ulcer of other part of unspecified foot with unspecified severity; Z79.4 - long-term (current) use of insulin SNOMED Code(s): 57650770 - Recommendations Recommendations: Await intra-op cultures. Wound care per Podiatry. Continue doxycycline 100mg PO BID. Continue Zosyn 3.375 grams IV Q8H. Duration of treatment depends on the clinical picture. Monitor renal function and dose-adjust antibiotics. Consult Discharge Plan - Plan Referrals: Miriam Briceno, WEIGHBRIDGE OPERATOR [Advanced Practice Nurse] - - Attending Attestation I have personally performed a face to face evaluation on this patient. I have reviewed and agree with the care plan. History and Exam by me shows: Assessment and plan: 1.Sepsis 2.Abscesses the right foot causative organism corynebacterium MRI results noted; S/P Incision and drainage below fascia right foot 01/22 3.Diabetes mellitus type 2 poorly controlled 4.History of above-knee and station left lower extremity history of transmetatarsal dictation of the right foot Recommendations: Await intra-op cultures. Wound care per Podiatry. Continue doxycycline 100mg PO BID. Continue Zosyn 3.375 grams IV Q8H. Duration of treatment depends on the clinical picture. Monitor renal function and dose-adjust antibiotics.
[2019-01-24] MEDS: Nicotine 14 MG PATCH.TD24 TD SCH (23:13)
[2019-01-25] MEDS: *HR* OxyCODONE Immed Rel 5 MG TABLET PO PRN ×6 (00:28→20:32)
[2019-01-25] MEDS: *HR* Heparin 5,000 UNIT/ML VIAL SQ SCH ×2 (04:28→17:16)
[2019-01-25 05:20] LABS: Basophils % 0.9 %; Eosinophils # 0.1 K/mcL (0.0-0.6); Hematocrit 36.1 % (37.5-50.1); Hemoglobin 12.2 g/dL (12.9-16.9); Immature Granulocytes % 0.2 % (0-4); Lymphocytes # 1.9 K/mcL (0.6-4.6); Lymphocytes % 44.6 %; Mean Corpuscular HGB Conc 33.8 g/dL (31.6-35.5); Mean Corpuscular Hemoglobin 31.8 pg (28.0-33.3); Mean Platelet Volume 9.9 fL (9.4-12.4); Monocytes # 0.5 K/mcL (0.0-1.3); Monocytes % 10.3 %; Neutrophils # 1.8 K/mcL (1.6-8.9); Platelet Count 163 K/mcL (140-400); Red Blood Count 3.84 M/mcL (4.19-5.50); Red Cell Distribution Width 11.9 % (11.5-14.5); White Blood Count 4.4 K/mcL (4.3-11.1)
[2019-01-25 05:34] LABS: BUN/Creatinine Ratio 10 (6-26); Blood Urea Nitrogen 10 mg/dL (6-20); Calcium 9.3 mg/dL (8.6-10.3); Carbon Dioxide 27 mEq/L (23-29); Chloride 104 mEq/L (98-107); Glucose 108 mg/dL (70-105); Osmolality,Calculated 286 (280-300); Potassium 3.7 mEq/L (3.5-5.1); Sodium 138 mEq/L (136-145); eGFR For African Americans > 60 (> 60); eGFR For Non-African Americans > 60 (> 60)
[2019-01-25] MEDS: Insulin LISPRO 300 UNITS/3 ML VIAL SQ SCH ×4 (07:30→20:23)
[2019-01-25] MEDS: 0.9 % Sodium Chloride 1,000 ML IVC SCH ×2 (08:17→17:25)
[2019-01-25] MEDS: BuPROPion SR (12 HR) 150 MG TABLET PO SCH ×3 (08:19→20:35)
[2019-01-25] MEDS: amLODIPine 5 MG TABLET PO SCH (08:19)
[2019-01-25] MEDS: Doxycycline 100 MG CAPSULE PO SCH ×2 (08:19→20:32)
[2019-01-25] MEDS: Piperacillin/Tazobactam 3.375 GM in 0.9 % Sodium Chloride Mini Bag 100 ML IVPB SCH ×3 (08:20→22:55)
--- NOTE | 2019-01-25 09:24 | Internal Med Progress Note ---
Hospitalist Progress Note - Encounter Date of Encounter: 01/25/19 Time of Encounter: 09:24 - Subjective Interval History: Patient seen and examined this morning at bedside. No acute overnight events. Denies new complaints. Somewhat depressed as she lost his mother 2 days ago. Denies any fever or chills nausea vomiting and diarrhea. Right lower leg pain improved. - Exam Vitals: Temp Pulse Resp BP Pulse Ox 98.0 F 68 17 135/87 99 01/25/19 06:46 01/25/19 06:46 01/25/19 06:46 01/25/19 06:46 01/25/19 08:15 Exam: General: In no acute distress. Respiratory exam: CTAB. no accessory muscle use, rales, rhonchi, wheezes Cardiovascular exam: RRR, +S1, +S2. no murmur, gallop, rubs. GI/Abdominal exam: Non-tender, Non-distended, normal bowel sounds, soft, no peritoneal signs. Extremities exam: Has Lt BKA with prosthesis. Rt foot with dressing in place with wound vac, has TMA Neurological exam: CN II-XII intact, AO X3, no focal deficits. Skin exam: No skin rash - Assessment and Plan (1) Diabetic foot ulcer Current Visit: Yes Status: Acute (2) Diabetes mellitus Current Visit: Yes Status: Acute (3) DVT prophylaxis Current Visit: Yes Status: Acute - Summary of Assessment and Plan Summary of Assessment and Plan: Assessment Acute Diabetic foot ulcer with abscess Chronic DM HTN Depression Plan - Diabetic foot ulcer with abscess confirmed on MRI. s/p abscess I&D 01/22. Await final intraopt cultures. No DVT. c/w pain control. - Wound growing corynebacterium striatum. Had BETHANY with vancomycin in past. c/w doxycycline and zosyn per ID. Recommendation appreciated. Will wait for final sensitivity. Will likely need IV antibiotics. has wound vac. He is homeless and will need placement for IV antibiotics if needed. - c/w home antidepressant - DM well controlled with a1c of 6.7. On levemir and aspart at home. c/w Accuchecks and Sliding scale. - heparin for DVT ppx. Internal Medicine: Result - Labs CBC & Chem 7: 01/25/19 04:59 01/25/19 04:59 Labs: Short CBC 01/25/19 Range/Units 04:59 WBC 4.4 (4.3-11.1) K/mcL Hgb 12.2 L (12.9-16.9) g/dL Hct 36.1 L (37.5-50.1) % Plt Count 163 (140-400) K/mcL Neutrophils # 1.8 (1.6-8.9) K/mcL BMP 01/25/19 04:59 Sodium 138 Potassium 3.7 Chloride 104 Carbon Dioxide 27 BUN 10 Creatinine 1.02 Glucose 108 H Calcium 9.3 - ABG Interpretation ABG results: PT/INR, D-dimer PT 12.4 Seconds (9.4-12.1) H 01/19/19 01:46 Consult Discharge Plan - Plan Referrals: Miriam Briceno, AUXILIARY EQUIPMENT TENDER [Advanced Practice Nurse] - (1) Diabetic foot ulcer Qualifiers: Diabetic foot ulcer location: unspecified part of foot Diabetes mellitus type: type 2 Laterality: right Non-pressure ulcer stage: with fat layer exposed Qualified Code(s): E11.621 - Type 2 diabetes mellitus with foot ulcer; L97.512 - Non-pressure chronic ulcer of other part of right foot with fat layer exposed (2) Diabetes mellitus Qualifiers: Diabetes mellitus type: type 2 Diabetes mellitus custodial insulin use: with custodial use Diabetes mellitus complication status: with skin complications Diabetes mellitus complication detail: with foot ulcer Qualified Code(s): E11.621 - Type 2 diabetes mellitus with foot ulcer; L97.509 - Non-pressure chronic ulcer of other part of unspecified foot with unspecified severity; Z79.4 - longterm (current) use of insulin
[2019-01-25] MEDS: Nicotine 14 MG PATCH.TD24 TD SCH (22:55)
[2019-01-26] MEDS: *HR* OxyCODONE Immed Rel 5 MG TABLET PO PRN ×6 (00:39→20:56)
[2019-01-26] MEDS: 0.9 % Sodium Chloride 1,000 ML IVC SCH ×2 (04:39→13:54)
[2019-01-26] MEDS: *HR* Heparin 5,000 UNIT/ML VIAL SQ SCH ×2 (05:07→17:34)
[2019-01-26] MEDS: Insulin LISPRO 300 UNITS/3 ML VIAL SQ SCH ×4 (07:30→20:51)
[2019-01-26] MEDS: Piperacillin/Tazobactam 3.375 GM in 0.9 % Sodium Chloride Mini Bag 100 ML IVPB SCH ×2 (08:02→16:01)
[2019-01-26] MEDS: Doxycycline 100 MG CAPSULE PO SCH ×2 (08:05→20:56)
[2019-01-26] MEDS: amLODIPine 5 MG TABLET PO SCH (08:05)
[2019-01-26] MEDS: BuPROPion SR (12 HR) 150 MG TABLET PO SCH ×2 (08:06→20:56)
--- NOTE | 2019-01-26 09:37 | Internal Med Progress Note ---
Hospitalist Progress Note - Encounter Date of Encounter: 01/26/19 Time of Encounter: 08:37 - Subjective Interval History: Patient seen and examined this morning at bedside. No acute overnight events. Denies new complaints. Pain is controlled. Denies any fever or chills nausea vomiting or diarrhea. - Exam Vitals: Temp Pulse Resp BP Pulse Ox 97.7 F 69 18 130/81 94 01/26/19 06:40 01/26/19 06:40 01/26/19 06:40 01/26/19 06:40 01/26/19 06:40 Exam: General: In no acute distress. Respiratory exam: CTAB. no accessory muscle use, rales, rhonchi, wheezes Cardiovascular exam: RRR, +S1, +S2. no murmur, gallop, rubs. GI/Abdominal exam: Non-tender, Non-distended, normal bowel sounds, soft, no peritoneal signs. Extremities exam: Has Lt BKA with prosthesis. Rt foot with dressing in place with wound vac, has TMA Neurological exam: CN II-XII intact, AO X3, no focal deficits. Skin exam: No skin rash - Assessment and Plan (1) Diabetic foot ulcer Current Visit: Yes Status: Inactive (2) Diabetes mellitus Current Visit: Yes Status: Acute (3) DVT prophylaxis Current Visit: Yes Status: Acute - Summary of Assessment and Plan Summary of Assessment and Plan: Assessment Acute Diabetic foot ulcer with abscess Chronic DM HTN Depression Plan - Diabetic foot ulcer with abscess confirmed on MRI. s/p abscess I&D 01/22. woun d culture NGTD on fiinal report. No DVT. c/w pain control. Will plan for DC tomorrow on placement can be arranged. - Wound growing corynebacterium striatum. Had BETHANY with vancomycin in past. c/w doxycycline and zosyn for now per ID. No growth on final anaerobic and wound culture. has wound vac. He is homeless and will need placement for IV antibiotics. Await final ID recommendation and placement. - c/w home antidepressant - DM well controlled with a1c of 6.7. On levemir and aspart at home. c/w Accuchecks and Sliding scale. - heparin for DVT ppx. Internal Medicine: Result - Labs CBC & Chem 7: 01/25/19 04:59 01/25/19 04:59 - ABG Interpretation ABG results: PT/INR, D-dimer PT 12.4 Seconds (9.4-12.1) H 01/19/19 01:46 Consult Discharge Plan - Plan Referrals: Miriam Briceno CNP [Advanced Practice Nurse] - (1) Diabetic foot ulcer Qualifiers: Diabetic foot ulcer location: unspecified part of foot Diabetes mellitus type: type 2 Laterality: right Non-pressure ulcer stage: with fat layer exposed Qualified Code(s): E11.621 - Type 2 diabetes mellitus with foot ulcer; L97.512 - Non-pressure chronic ulcer of other part of right foot with fat layer exposed (2) Diabetes mellitus Qualifiers: Diabetes mellitus type: type 2 Diabetes mellitus snf insulin use: with snf use Diabetes mellitus complication status: with skin complications Diabetes mellitus complication detail: with foot ulcer Qualified Code(s): E11.621 - Type 2 diabetes mellitus with foot ulcer; L97.509 - Non-pressure chronic ulcer of other part of unspecified foot with unspecified severity; Z79.4 - half-way (current) use of insulin
[2019-01-26] MEDS: Nicotine 14 MG PATCH.TD24 TD SCH (20:56)
[2019-01-27] MEDS: Piperacillin/Tazobactam 3.375 GM in 0.9 % Sodium Chloride Mini Bag 100 ML IVPB SCH ×2 (00:29→08:11)
[2019-01-27] MEDS: 0.9 % Sodium Chloride 1,000 ML IVC SCH (00:29)
[2019-01-27] MEDS: *HR* OxyCODONE Immed Rel 5 MG TABLET PO PRN ×7 (01:18→23:16)
[2019-01-27] MEDS: *HR* Heparin 5,000 UNIT/ML VIAL SQ SCH ×2 (06:40→16:32)
[2019-01-27] MEDS: amLODIPine 5 MG TABLET PO SCH (08:10)
[2019-01-27] MEDS: BuPROPion SR (12 HR) 150 MG TABLET PO SCH ×2 (08:10→20:47)
[2019-01-27] MEDS: Doxycycline 100 MG CAPSULE PO SCH (08:10)
[2019-01-27] MEDS: Insulin LISPRO 300 UNITS/3 ML VIAL SQ SCH ×4 (08:19→20:50)
--- NOTE | 2019-01-27 10:13 | Infectious Disease Progress No ---
ID Progress Note Date of Encounter: 01/27/19 Time of Encounter: 09:40 - Subjective Subjective: Patient seen and examined. No acute events noted overnight. Denies fevers, chills, or rigors. Denies chest pain, shortness of breath, or cough. Denies nausea, vomiting or diarrhea. Reports last BM this morning. Denies abdominal pain or urinary complaints. Complains of pain in the right foot. Denies oral thrush or skin rashes. States appetite is good. - Objective CBC & Chem 7: 01/25/19 04:59 01/27/19 12:57 - Exam Vitals: Temp Pulse Resp BP Pulse Ox 98.4 F 87 16 137/83 98 01/27/19 10:00 01/27/19 10:00 01/27/19 10:00 01/27/19 10:00 01/27/19 10:00 Exam: Head: Atraumatic, normal inspection, normocephalic. Eye: EOMI, PERRLA, no scleral icterus noted. ENT: Mucous membranes moist. No odontogenic infection noted. Neck: Normal inspection, no meningismus. Respiratory: Clear to auscultation. No rales, respiratory distress, rhonchi, or wheezes noted. Cardiovascular: Regular rate and rhythm, S1 and S2 audible. No murmurs, rubs, or gallops. GI: Soft, nondistended, normal bowel sounds. Extremities:No joint swelling, pedal edema, or tenderness noted. Right foot dressing C/D/I with wound VAC noted. No drainage in the canister, no leak. Left AKA stump without abnormality. Back: Normal inspection. No vertebral tenderness noted. Neurological: Alert, oriented 3, no focal deficits. Psychiatric: normal affect, normal mood. Skin: Dry, intact, warm. Normal color. No rashes. - Assessment and Plan (1) Sepsis Current Visit: Yes Status: Acute The patient had two SIRS criteria on admission. Likely secondary to right foot infection and abscess. Resolved. Blood cultures drawn 01/17/19 are negative x 2 sets. Blood cultures drawn 01/22/19 are NGTD x 2 sets. Qualifiers: Sepsis type: sepsis due to unspecified organism Qualified Code(s): A41.9 - Sepsis, unspecified organism SNOMED Code(s): 44172767 (2) Abscess of right foot Current Visit: Yes Status: Acute CT right foot showed a large ulceration along the plantar soft tissues distally with underlying rim enhancing collection which is difficult to measure given the serpiginous course of the collection. This measures approximately 1.1 x 2.3 x 2.9 cm in greatest dimension. Findings most compatible with abscess. Wound culture obtained 01/17/19 are positive for GPC, presumptive Staph species. Sent to reference lab. Final ID and sensitivities pending. Wound culture obtained here is positive for corynebacteriium striatum. MRI positive for abscess. ESR and CRP minimally elevated. Podiatry consulted and following. Status post I & D 01/22/[address] Schroeder. Intra-op cultures negative. Anaerobic cultures no growth. Currently on PO doxycycline and zosyn. SNOMED Code(s): 96490883598770268 (3) Diabetic foot ulcer Current Visit: Yes Status: Inactive Qualifiers: Diabetic foot ulcer location: unspecified part of foot Diabetes mellitus type: type 2 Laterality: right Non-pressure ulcer stage: with fat layer exposed Qualified Code(s): E11.621 - Type 2 diabetes mellitus with foot ulcer; L97.512 - Non-pressure chronic ulcer of other part of right foot with fat layer exposed SNOMED Code(s): 365286609 (4) Status post transmetatarsal amputation of right foot Current Visit: Yes Status: Acute SNOMED Code(s): 958756643 (5) Status post above knee amputation of left lower extremity Current Visit: Yes Status: Acute SNOMED Code(s): 567555651456187, 57171458, 905105804704448 (6) Diabetes mellitus Current Visit: Yes Status: Acute Recommend aggressive glucose monitoring and control to promote wound healing and prevent re-infection. Management per the primary team. Qualifiers: Diabetes mellitus type: type 2 Diabetes mellitus skilled nursing insulin use: with skilled nursing use Diabetes mellitus complication status: with skin complications Diabetes mellitus complication detail: with foot ulcer Qualified Code(s): E11.621 - Type 2 diabetes mellitus with foot ulcer; L97.509 - Non-pressure chronic ulcer of other part of unspecified foot with unspecified severity; Z79.4 - terminal carman (current) use of insulin SNOMED Code(s): 45682346 - Recommendations Recommendations: Check CK level. Await cultures to finalize. Wound care per Podiatry. Discontinue Zosyn and doxycycline. Start Daptomycin 6mg/kg IV daily. Start Rocephin 2 grams IV daily. Duration of treatment depends on the clinical picture, but likely 6 weeks since we will need to be aggressive in order to salvage his foot. Monitor renal function and dose-adjust antibiotics. financial services internship working on placement since the patient is homeless. Consult VAT for PICC line placement prior to discharge. Will need weekly CBC, BUN/Cr, ESR, CRP, CK. Will need weekly IV care per protocol. Follow up with ID 2 weeks post-discharge. Consult Discharge Plan - Plan Referrals: Miriam Briceno CNP [Advanced Practice Nurse] - Marilu Torres MD [Partnered Physician] - 02/26/19 10:45 am Prescriptions: Ceftriaxone Na/Dextrose,Iso [Ceftriaxone 2 gm Piggyback] 2 gm IV DAILY 42 Days #42 mls DAPTOmycin [Daptomycin] 750 mg IV DAILY #42 vial OxyCODONE Immed Rel [Roxicodone 5 MG] 10 mg PO Q8HR PRN 3 Days #6 tablet PRN Reason: Severe Pain - Attending Attestation I have personally performed a face to face evaluation on this patient. I have reviewed and agree with the care plan. History and Exam by me shows: Assessment and plan: 1.Sepsis 2.Abscesses the right foot causative organism corynebacterium MRI results noted; S/P Incision and drainage below fascia right foot 01/22 3.Diabetes mellitus type 2 poorly controlled 4.History of above-knee and station left lower extremity history of transmetatarsal dictation of the right foot Recommendations: Check CK level. Await cultures to finalize. Wound care per Podiatry. Discontinue Zosyn and doxycycline. Start Daptomycin 6mg/kg IV daily. Start Rocephin 2 grams IV daily. Duration of treatment depends on the clinical picture, but likely 6 weeks since we will need to be aggressive in order to salvage his foot. Monitor renal function and dose-adjust antibiotics. financial services internship working on placement since the patient is homeless. Consult VAT for PICC line placement prior to discharge. Will need weekly CBC, BUN/Cr, ESR, CRP, CK. Will need weekly IV care per protocol. Follow up with ID 2 weeks post-discharge.
[2019-01-27] MEDS ORDERED: Vancomycin 1 EACH in 0.9 % Sodium Chloride 250 ML IVPB SCH (13:00)
[2019-01-27] MEDS ORDERED: Lidocaine -MPF 1% 5 ML AMPUL INFILT ONE (13:05)
--- NOTE | 2019-01-27 14:13 | Discharge Summary ---
- NOTES TO OUTPATIENT PROVIDER Notes to Outpatient Provider: Patient will continue IV antibiotics for 6 more weeks. Follow with infectious disease and podiatry as outpatient. Orders not resulted at time of discharge: Pending orders 01/22/19 19:23 Culture,Anaerobic [RM] Routine Date of Encounter: 01/27/19 Time of Encounter: 11:04 - Discharge Diagnosis (1) Diabetic foot ulcer Priority: Primary Status: Inactive Qualifiers: Diabetic foot ulcer location: unspecified part of foot Diabetes mellitus type: type 2 Laterality: right Non-pressure ulcer stage: with fat layer exposed Qualified Code(s): E11.621 - Type 2 diabetes mellitus with foot ulcer; L97.512 - Non-pressure chronic ulcer of other part of right foot with fat layer exposed (2) Diabetes mellitus Priority: Secondary Status: Acute Qualifiers: Diabetes mellitus type: type 2 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 terminal 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: with laborer marine terminal use Diabetes mellitus complication status: with skin complications Diabetes mellitus complication detail: with foot ulcer Qualified Code(s): E11.621 - Type 2 diabetes mellitus with foot ulcer; L97.509 - Non-pressure chronic ulcer of other part of unspecified foot with unspecified severity; Z79.4 - predatory animal exterminator (current) use of insulin (3) DVT prophylaxis Priority: Secondary Status: Acute (4) HTN (hypertension) Priority: Secondary Status: Acute Qualifiers: Hypertension type: essential hypertension Qualified Code(s): I10 - Essential (primary) hypertension (5) Depression Priority: Secondary Status: Acute Qualifiers: Depression Type: unspecified Qualified Code(s): F32.9 - Major depressive disorder, single episode, unspecified (6) Abscess of right foot Priority: Primary Status: Acute (7) Status post above knee amputation of left lower extremity Priority: Secondary Status: Acute (8) Status post transmetatarsal amputation of right foot Priority: Secondary Status: Acute (9) Sepsis Priority: Primary Status: Acute Qualifiers: Sepsis type: sepsis due to unspecified organism Qualified Code(s): A41.9 - Sepsis, unspecified organism Hospital course: Mr. Hickman is a 33 year old male past medical history of diabetes, left BKA, chronic right foot wound ulcer after having an injury came with complaint of nausea, SIRS criteria with signs of wound infection. Patient was started on Zyvox and Zosyn initially given his allergy to vancomycin. Podiatry and infectious disease was consulted. Zyvox was switched to doxycycline by mouth. Patient had a CT which showed signs of abscess which was confirmed by MRI. Patient had negative DVT studies. Patient underwent right foot abscess drainage on 01/22/19. Patient's first wound culture grew Corynebacterium striatal however blood cultures anaerobic culture and wound cultures from surgery were negative however was taken after antibiotic. Previous right wound culture drawn on 01/18/19 showed Staphylococcus cohnii. Infectious disease recommended 6 weeks of vancomycin and Rocephin. This patient is homeless and needing IV antibiotics he will be arranged for SNF placement for IV antibiotics. His diabetes is controlled and will be continued on her home insulin. He would be discharged once IV antibiotics and SNF placement is arranged. Discharge discussed with: patient, nurse, social work, case management, party plan sales consultant - Time Spent with Patient Total time spent providing and/or coordinating discharge services: Time spent: Greater than 30 minutes (40) - Discharge Medications Prescriptions: New OxyCODONE Immed Rel [Roxicodone 5 MG] 10 mg PO Q8HR PRN 3 Days #6 tablet PRN Reason: Severe Pain Ceftriaxone Na/Dextrose,Iso [Ceftriaxone 2 gm Piggyback] 2 gm IV DAILY 42 Days #42 mls DAPTOmycin [Daptomycin] 750 mg IV DAILY #42 vial Continued BuPROPion SR (12 HR) [Wellbutrin SR] 150 mg PO BID Citalopram [CeleXA] 20 mg PO DAILY Quetiapine Fumarate [Seroquel] 25 mg PO HS Insulin DETEMIR [Levemir Flextouch] 42 unit SQ HS Omeprazole [PriLOSEC] 40 mg PO DAILY Insulin ASPART [NovoLOG] 0 unit SQ TIDWM amLODIPine [Norvasc] 5 mg PO DAILY Home Medications: Insulin ASPART [NovoLOG] 0 unit SQ TIDWM 11/25/18 [History] Omeprazole [PriLOSEC] 40 mg PO DAILY 11/25/18 [History] amLODIPine [Norvasc] 5 mg PO DAILY 11/25/18 [History] BuPROPion SR (12 HR) [Wellbutrin SR] 150 mg PO BID 01/19/19 [History] Citalopram [CeleXA] 20 mg PO DAILY 01/19/19 [History] Insulin DETEMIR [Levemir Flextouch] 42 unit SQ HS 01/19/19 [History] Quetiapine Fumarate [Seroquel] 25 mg PO HS 01/19/19 [History] Ceftriaxone Na/Dextrose,Iso [Ceftriaxone 2 gm Piggyback] 2 gm IV DAILY 42 Days #42 mls 01/27/19 [Rx] DAPTOmycin [Daptomycin] 750 mg IV DAILY #42 vial 01/27/19 [Rx] OxyCODONE Immed Rel [Roxicodone 5 MG] 10 mg PO Q8HR PRN 3 Days #6 tablet 01/27/19 [Rx] Allergies/Adverse Reactions: Allergy/AdvReac Type Severity Reaction Status Date / Time vancomycin AdvReac See Verified 01/19/19 16:44 Comments Date of admission: 01/20/19 12:40 Primary care physician: PCP NONE Consults: 01/18/19 08:24 Consult to Wound Care [CONS] Routine Reason for Consult: ulcers Call Completed: No 01/18/19 09:01 Consult to Podiatry [CONS] Routine Consulting Provider: [facility] Reason for Consult: diabetic foot ulcer Call Completed: Yes 01/18/19 11:24 Consult to Nutrition [CONS] Routine Comment: Consulting Provider: NUTRITION Reason for Dietary Consult: MST Score Consult to Lime Filter Operator [CONS] Routine Reason for SW Consult: may need IV ATB, home health 01/20/19 11:36 Consult to Lime Filter Operator [CONS] Routine Reason for SW Consult: Homeless, Evicted on Sunday. If IV abx are needed at D/c patient is willing to go to SNF if not he would like to look for shelters in [facility] 01/20/19 12:15 Consult to Infectious Diseases [CONS] Routine Consulting Provider: Infectious Disease Mallory Reason for Consult: Rt foot abscess, Call Completed: Yes 01/27/19 13:05 Consult to Invasive Line Access Team [CONS] Routine Reason for Consult: Picc Line Insertion Line Type: PICC PICC line indications: predatory animal exterminator Med/Antibiotic Time Notified: 13:05 Call Completed: Yes Discharging clinician: Dereje Naylor - Constitutional Vitals: Temp Pulse Resp BP Pulse Ox 98.4 F 87 16 137/83 98 01/27/19 10:00 01/27/19 10:00 01/27/19 10:00 01/27/19 10:00 01/27/19 10:00 Exam: General: In no acute distress. Respiratory exam: CTAB. no accessory muscle use, rales, rhonchi, wheezes Cardiovascular exam: RRR, +S1, +S2. no murmur, gallop, rubs. GI/Abdominal exam: Non-tender, Non-distended, normal bowel sounds, soft, no peritoneal signs. Extremities exam: Has Lt BKA with prosthesis. Rt foot with dressing in place with wound vac, has TMA, sensation intact Neurological exam: CN II-XII intact, AO X3, no focal deficits. Skin exam: No skin rash - Patient Status Disposition: Transfer SNF - Discharge Instructions Follow Up With: Miriam Briceno, RESIDENTIAL DRIVER [Advanced Practice Nurse] - - Diet and Activity Activity: as per physical therapy
[2019-01-27 14:47] LABS: BUN/Creatinine Ratio 12 (6-26); Blood Urea Nitrogen 12 mg/dL (6-20); Creatine Kinase 120 Units/L (30-223); eGFR For African Americans > 60 (> 60); eGFR For Non-African Americans > 60 (> 60)
[2019-01-27] MEDS ORDERED: Aminoglycoside Consult 1 EACH MC ONE (14:57)
[2019-01-27] MEDS: DAPTOmycin 750 MG in 0.9 % Sodium Chloride 100 ML IVPB SCH (15:13)
--- NOTE | 2019-01-27 15:22 | Physician Discharge Referral ---
ExtendedCare Referral Info Institutional Level of Care: Skilled - Diagnosis (1) Diabetic foot ulcer Status: Inactive (2) Diabetes mellitus Status: Acute (3) DVT prophylaxis Status: Acute (4) HTN (hypertension) Status: Acute (5) Depression Status: Acute (6) Abscess of right foot Status: Acute (7) Status post above knee amputation of left lower extremity Status: Acute (8) Status post transmetatarsal amputation of right foot Status: Acute (9) Sepsis Status: Acute - Transfer Medications Prescriptions: Ceftriaxone Na/Dextrose,Iso [Ceftriaxone 2 gm Piggyback] 2 gm IV DAILY 42 Days #42 mls DAPTOmycin [Daptomycin] 750 mg IV DAILY #42 vial OxyCODONE Immed Rel [Roxicodone 5 MG] 10 mg PO Q8HR PRN 3 Days #6 tablet PRN Reason: Severe Pain Home Medications: Insulin ASPART [NovoLOG] 0 unit SQ TIDWM 11/25/18 [History] Omeprazole [PriLOSEC] 40 mg PO DAILY 11/25/18 [History] amLODIPine [Norvasc] 5 mg PO DAILY 11/25/18 [History] BuPROPion SR (12 HR) [Wellbutrin SR] 150 mg PO BID 01/19/19 [History] Citalopram [CeleXA] 20 mg PO DAILY 01/19/19 [History] Insulin DETEMIR [Levemir Flextouch] 42 unit SQ HS 01/19/19 [History] Quetiapine Fumarate [Seroquel] 25 mg PO HS 01/19/19 [History] Ceftriaxone Na/Dextrose,Iso [Ceftriaxone 2 gm Piggyback] 2 gm IV DAILY 42 Days #42 mls 01/27/19 [Rx] DAPTOmycin [Daptomycin] 750 mg IV DAILY #42 vial 01/27/19 [Rx] OxyCODONE Immed Rel [Roxicodone 5 MG] 10 mg PO Q8HR PRN 3 Days #6 tablet 01/27/19 [Rx] Allergies/Adverse Reactions: Allergy/AdvReac Type Severity Reaction Status Date / Time vancomycin AdvReac See Verified 01/19/19 16:44 Comments - Respiratory Orders Smoking Cessation: Smoking cessation has been advised. For more information, call the [place] Tobacco Quit Line at 2-951-FWEI-NOW. - Lab Orders Lab Orders: Other (include drug levels w/frequency) (Will need weekly CBC, BUN/Cr, ESR, CRP, CK.) CERTIFICATION: I certify that the transfer of the above named patient to an Extended Care Facility is necessary for the continuing treatment of the diagnosis listed. The above information is true and accurate reflection of patient's current condition. Confidential - Redisclosure prohibited without a patient's written consent.
[2019-01-27] MEDS: Nicotine 14 MG PATCH.TD24 TD SCH (20:46)
[2019-01-28] MEDS: *HR* OxyCODONE Immed Rel 5 MG TABLET PO PRN ×6 (01:11→18:10)
[2019-01-28] MEDS: *HR* Heparin 5,000 UNIT/ML VIAL SQ SCH ×2 (05:09→18:10)
[2019-01-28] MEDS: 0.9 % Sodium Chloride 1,000 ML IVC SCH (07:56)
[2019-01-28] MEDS: Insulin LISPRO 300 UNITS/3 ML VIAL SQ SCH ×3 (07:57→18:05)
[2019-01-28] MEDS ORDERED: cefTRIAXone 1,000 MG in Water for inj. (sterile) 10 ML IVP SCH (09:00)
[2019-01-28] MEDS: BuPROPion SR (12 HR) 150 MG TABLET PO SCH (09:21)
[2019-01-28] MEDS: amLODIPine 5 MG TABLET PO SCH (09:21)
--- NOTE | 2019-01-28 09:59 | Infectious Disease Progress No ---
ID Progress Note Date of Encounter: 01/28/19 Time of Encounter: 09:54 - Subjective Subjective: Patient seen and examined. No acute events noted overnight. Denies fevers, chills, or rigors. Denies chest pain, shortness of breath, or cough. Denies nausea, vomiting or diarrhea. Reports regular BMs. Denies abdominal pain or urinary complaints. Complains of pain in the right foot. Denies oral thrush or skin rashes. States appetite is good. - Objective CBC & Chem 7: 01/25/19 04:59 01/27/19 12:57 - Exam Vitals: Temp Pulse Resp BP Pulse Ox 97.7 F 79 18 112/74 99 01/28/19 07:54 01/28/19 07:54 01/28/19 07:54 01/28/19 07:54 01/28/19 09:33 Exam: Head: Atraumatic, normal inspection, normocephalic. Eye: EOMI, PERRLA, no scleral icterus noted. ENT: Mucous membranes moist. No odontogenic infection noted. Neck: Normal inspection, no meningismus. Respiratory: Clear to auscultation. No rales, respiratory distress, rhonchi, or wheezes noted. Cardiovascular: Regular rate and rhythm, S1 and S2 audible. No murmurs, rubs, or gallops. GI: Soft, nondistended, normal bowel sounds. Extremities:No joint swelling, pedal edema, or tenderness noted. Right foot dressing C/D/I with wound VAC noted. No drainage in the canister, no leak. Left AKA stump without abnormality. Back: Normal inspection. No vertebral tenderness noted. Neurological: Alert, oriented 3, no focal deficits. Psychiatric: normal affect, normal mood. Skin: Dry, intact, warm. Normal color. No rashes. - Assessment and Plan (1) Sepsis Status: Acute The patient had two SIRS criteria on admission. Likely secondary to right foot infection and abscess. Resolved. Blood cultures drawn 01/17/19 are negative x 2 sets. Blood cultures drawn 01/22/19 are negative x 2 sets. Qualifiers: Sepsis type: sepsis due to unspecified organism Qualified Code(s): A41.9 - Sepsis, unspecified organism SNOMED Code(s): 99626972 (2) Abscess of right foot Status: Acute CT right foot showed a large ulceration along the plantar soft tissues distally with underlying rim enhancing collection which is difficult to measure given the serpiginous course of the collection. This measures approximately 1.1 x 2.3 x 2.9 cm in greatest dimension. Findings most compatible with abscess. Wound culture obtained 01/17/19 grew S. cohii. Wound culture obtained here is positive for corynebacteriium striatum. MRI positive for abscess. ESR and CRP minimally elevated. Podiatry consulted and following. Status post I & D 01/22/[address] Schroeder. Intra-op cultures negative. Anaerobic cultures no growth. Currently on IV Daptomycin and Rocephin. SNOMED Code(s): 46214778426387517 (3) Diabetic foot ulcer Status: Inactive Qualifiers: Diabetic foot ulcer location: unspecified part of foot Diabetes mellitus type: type 2 Laterality: right Non-pressure ulcer stage: with fat layer exposed Qualified Code(s): E11.621 - Type 2 diabetes mellitus with foot ulcer; L97.512 - Non-pressure chronic ulcer of other part of right foot with fat layer exposed SNOMED Code(s): 716902076 (4) Status post transmetatarsal amputation of right foot Status: Acute SNOMED Code(s): 264182308 (5) Status post above knee amputation of left lower extremity Status: Acute SNOMED Code(s): 880440207946331, 20129209, 523473231643664 (6) Diabetes mellitus Status: Acute Recommend aggressive glucose monitoring and control to promote wound healing and prevent re-infection. Management per the primary team. Qualifiers: Diabetes mellitus type: type 2 Diabetes mellitus long term care pharmacist insulin use: with retirement use Diabetes mellitus complication status: with skin complications Diabetes mellitus complication detail: with foot ulcer Qualified Code(s): E11.621 - Type 2 diabetes mellitus with foot ulcer; L97.509 - Non-pressure chronic ulcer of other part of unspecified foot with unspecified severity; Z79.4 - skilled nursing (current) use of insulin SNOMED Code(s): 33352928 - Recommendations Recommendations: Await cultures to finalize. Wound care per Podiatry. Continue Daptomycin 8mg/kg IV daily. (baseline CK 120) Continue Rocephin 2 grams IV daily. Duration of treatment depends on the clinical picture, but likely 6 weeks since we will need to be aggressive in order to salvage his foot. Will plan to treat through at least 03/12/19. Monitor renal function and dose-adjust antibiotics. janitorial services supervisor working on placement since the patient is homeless. Consult VAT for PICC line placement prior to discharge. Will need weekly CBC, BUN/Cr, ESR, CRP, CK. Will need weekly IV care per protocol. Follow up with ID 02/26/19 at 1045. Consult Discharge Plan - Plan Referrals: [facility] [Other] - 02/17/19 10:30 am (Follow-up) Tylor Schroeder DPM [Partnered Physician] - (Patient will be seen in the Wound Care Clinic. Thank you) Miriam Briceno CNP [Advanced Practice Nurse] - (ECF) Marilu Torres MD [Partnered Physician] - 02/26/19 10:45 am Prescriptions: Ceftriaxone Na/Dextrose,Iso [Ceftriaxone 2 gm Piggyback] 2 gm IV DAILY 42 Days #42 mls DAPTOmycin [Daptomycin] 750 mg IV DAILY #42 vial OxyCODONE Immed Rel [Roxicodone 5 MG] 10 mg PO Q8HR PRN 3 Days #6 tablet PRN Reason: Severe Pain - Attending Attestation I have personally performed a face to face evaluation on this patient. I have reviewed and agree with the care plan. History and Exam by me shows: Assessment and plan: 1.Sepsis 2.Abscesses the right foot causative organism corynebacterium MRI results noted; S/P Incision and drainage below fascia right foot 01/22 3.Diabetes mellitus type 2 poorly controlled 4.History of above-knee and station left lower extremity history of transmetata rsal dictation of the right foot Recommendations: Continue Daptomycin 8mg/kg IV daily. (baseline CK 120) Continue Rocephin 2 grams IV daily. Duration of treatment depends on the clinical picture, but likely 6 weeks since we will need to be aggressive in order to salvage his foot. Will plan to treat through at least 03/12/19. Monitor renal function and dose-adjust antibiotics. janitorial services supervisor working on placement since the patient is homeless. Consult VAT for PICC line placement prior to discharge. Will need weekly CBC, BUN/Cr, ESR, CRP, CK. Will need weekly IV care per protocol. Follow up with ID 02/26/19 at 1045.
--- NOTE | 2019-01-28 10:10 | Internal Med Progress Note ---
Hospitalist Progress Note - Encounter Date of Encounter: 01/28/19 Time of Encounter: 10:10 - Subjective Interval History: Patient seen and examined this morning at bedside. Denies new complaints. Denies any fever or chills nausea vomiting diarrhea. Denies any chest pain or difficulty breathing. Waiting for placement. - Exam Vitals: Temp Pulse Resp BP Pulse Ox 97.7 F 79 18 112/74 99 01/28/19 07:54 01/28/19 07:54 01/28/19 07:54 01/28/19 07:54 01/28/19 09:33 Exam: General: In no acute distress. Respiratory exam: CTAB. no accessory muscle use, rales, rhonchi, wheezes Cardiovascular exam: RRR, +S1, +S2. no murmur, gallop, rubs. GI/Abdominal exam: Non-tender, Non-distended, normal bowel sounds, soft, no peritoneal signs. Extremities exam: Has Lt BKA with prosthesis. Rt foot with dressing in place with wound vac, has TMA, sensation intact Neurological exam: CN II-XII intact, AO X3, no focal deficits. Skin exam: No skin rash - Assessment and Plan (1) Diabetic foot ulcer Current Visit: Yes Status: Inactive (2) Diabetes mellitus Current Visit: Yes Status: Acute (3) DVT prophylaxis Current Visit: Yes Status: Acute (4) HTN (hypertension) Current Visit: Yes Status: Acute (5) Depression Current Visit: Yes Status: Acute (6) Abscess of right foot Current Visit: Yes Status: Acute (7) Status post above knee amputation of left lower extremity Current Visit: Yes Status: Acute (8) Status post transmetatarsal amputation of right foot Current Visit: Yes Status: Acute (9) Sepsis Current Visit: Yes Status: Acute - Summary of Assessment and Plan Summary of Assessment and Plan: Assessment Acute Diabetic foot ulcer with abscess Chronic DM HTN Depression Plan - Diabetic foot ulcer with abscess confirmed on MRI. s/p abscess I&D 01/22. wound culture NGTD on fiinal report. No DVT. c/w pain control. - Wound growing corynebacterium striatum. Had BETHANY with vancomycin in past. Previous right wound culture drawn on 01/18/19 showed Staphylococcus cohnii. Abscess drained after antibiotic use did not grow any organism. to finish 6 weeks of ceftriaxone and daptomycin per ID. - c/w home antidepressant - DM well controlled with a1c of 6.7. On levemir and aspart at home. c/w Accuchecks and Sliding scale. - heparin for DVT ppx. - Okay to discharge once placement available. Internal Medicine: Result - Labs CBC & Chem 7: 01/25/19 04:59 01/27/19 12:57 Labs: BMP 01/27/19 12:57 BUN 12 Creatinine 1.03 - ABG Interpretation ABG results: PT/INR, D-dimer PT 12.4 Seconds (9.4-12.1) H 01/19/19 01:46 Consult Discharge Plan - Plan Referrals: Miriam Briceno CNP [Advanced Practice Nurse] - Marilu Torres MD [Partnered Physician] - 02/26/19 10:45 am Prescriptions: Ceftriaxone Na/Dextrose,Iso [Ceftriaxone 2 gm Piggyback] 2 gm IV DAILY 42 Days #42 mls DAPTOmycin [Daptomycin] 750 mg IV DAILY #42 vial OxyCODONE Immed Rel [Roxicodone 5 MG] 10 mg PO Q8HR PRN 3 Days #6 tablet PRN Reason: Severe Pain ___ (1) Diabetic foot ulcer Qualifiers: Diabetic foot ulcer location: unspecified part of foot Diabetes mellitus type: type 2 Laterality: right Non-pressure ulcer stage: with fat layer exposed Qualified Code(s): E11.621 - Type 2 diabetes mellitus with foot ulcer; L97.512 - Non-pressure chronic ulcer of other part of right foot with fat layer exposed (2) Diabetes mellitus Qualifiers: Diabetes mellitus type: type 2 Diabetes mellitus shelter insulin use: with shelter use Diabetes mellitus complication status: with skin complications Diabetes mellitus complication detail: with foot ulcer Qualified Code(s): E11.621 - Type 2 diabetes mellitus with foot ulcer; L97.509 - Non-pressure chronic ulcer of other part of unspecified foot with unspecified severity; Z79.4 - meterman (current) use of insulin (4) HTN (hypertension) Qualifiers: Hypertension type: essential hypertension Qualified Code(s): I10 - Essential (primary) hypertension (5) Depression Qualifiers: Depression Type: unspecified Qualified Code(s): F32.9 - Major depressive disorder, single episode, unspecified (9) Sepsis Qualifiers: Sepsis type: sepsis due to unspecified organism Qualified Code(s): A41.9 - Sepsis, unspecified organism
[2019-01-28] MEDS ORDERED: cefTRIAXone 2,000 MG in Water for inj. (sterile) 20 ML IVP SCH (14:00)
[2019-01-28] MEDS ORDERED: cefTRIAXone 1,000 MG in Water for inj. (sterile) 10 ML IVP ONE (14:24)
[2019-01-28] MEDS: DAPTOmycin 750 MG in 0.9 % Sodium Chloride 100 ML IVPB SCH (14:49)
--- NOTE | 2019-01-28 15:06 | Podiatry Progress Note ---
Date of Encounter: 01/28/19 Time of Encounter: 14:00 - Assessment and Plan (1) Abscess of right foot Current Visit: Yes Status: Acute Assessment: S/P incision and drainage below fascia right foot with Dr. Schroeder on 01/22/19, measuring 1.5 x 1 x 0.2 with tunneling noted to center of wound 2.3 cm Cheney grade II ulceration right lateral foot, right plantar foot Unstageable ulceration right posterior achilles tendon No erythema noted to plantar aspect of foot WBC 4.4 on the no labs today, ESR 21, CRP 24 CT pre op suggestive of abscess XR negative for OM Wound culture positive for coryneabacterium Blood cultures negative Venous duplex negative Plan: Wound vac placed, TTHS schedule ID consulted- recommendations appreciated Dressing changed, see below food services director to help with home care/ECF placement for vac Patient reporting he has been kicked out of multiple ECF facilities- reports that if he cant find placement in 3 days he is going to sign himself out. Advised against this and risks covered, states he "is aware but no one will take him, he knows it" Cleansed right foot with 0.9 NS. Prepped skin with skin prep. Placed tegaderm drape in window pane fashion. Placed black granulafoam to wound bed and tunneling. Covered with tegaderm drape. Placed to suction at -125 mmHG. Good seal noted. Calcium alginate placed to right lateral ulceration, Secured with drain sponge, kerlix, and medipore tape Subjective Principal diagnosis: Right foot ulcer Interval history: Patient resting comfortably in bed. Denies any pain. Eating lunch. Denies any known fevers, chills, n/v or fls. Denies any calf pain or sob Wound vac intact and running without leak. Objective - Vital Signs Vital Signs: Vital Signs Temp Pulse Resp BP Pulse Ox 01/28/19 11:24 98.1 F 77 18 119/78 98 01/28/19 09:33 99 01/28/19 07:54 97.7 F 79 18 112/74 99 01/28/19 03:11 97.9 F 77 14 130/78 100 01/27/19 22:40 97.7 F 86 14 127/83 98 01/27/19 19:16 98.1 F 80 14 138/94 98 Intake and Output 01/27/19 01/28/19 01/28/19 23:59 07:59 15:59 Intake Total 480 / 1160 200 / 690 490 / 690 Output Total 875 / 3700 100 / 600 500 / 600 Balance -395 / -2540 100 / 90 - Intake: IV Fluids Rocephin 1,000 MG In Water for inj. (sterile) 10 ML @ 600 mls/ hr IVP DAILY [facility] Rx#:[id number] Oral 480 / 960 200 / 680 480 / 680 Output: Urine 875 / 3700 100 / 600 500 / 600 Wound Drainage 0 / 0 0 / 0 0 / 0 Right Foot 0 / 0 0 / 0 0 / 0 Right Lateral Foot 0 / 0 Right Lower Heel 0 / 0 0 / 0 Right Posterior Medial Plantar 0 / 0 Foot Other: Meal Breakfast Percent of Meal Consumed 100% Weight 96.2 kg Blood Glucose* 107 105 130 Patient Weight 01/28/19 23:59 Weight 96.2 kg - Exam Exam: Constitiutional: Alert and oriented x 3. Agitated at times. Well nourished. No acute distress noted Vascular: Faint DP/PT RLE, Right TMA, L BKA, warm to warm from tibia to stump RLE, no calf pain with squeeze RLE Neurologic: Absent sensation to touch, normal plantar response Dermatologic: Cheney grade II ulceration noted to right plantar midfoot and right lateral 5th metatarsal, right plantar ulcer with tunneling noted. unstageable ulcer noted to right achilles tendon area with areas of eschar noted, no erythema noted to surrounding tissue. no drainage to midfoot wound. no odor. Healthy granulation tissue noted. Musculoskeletal: 3/5 muscle strength and normal tone bilaterally. - Lab Result Diagrams: 01/25/19 04:59 01/27/19 12:57 Labs: Abnormal lab results WBC 3.6 K/mcL (4.3-11.1) L 01/22/19 03:38 RBC 3.84 M/mcL (4.19-5.50) L 01/25/19 04:59 Hgb 12.2 g/dL (12.9-16.9) L 01/25/19 04:59 Hct 36.1 % (37.5-50.1) L 01/25/19 04:59 Neutrophils # 1.5 K/mcL (1.6-8.9) L 01/22/19 03:38 ESR 21 mm/hr (0-10) H 01/20/19 12:19 PT 12.4 Seconds (9.4-12.1) H 01/19/19 01:46 Chloride 108 mEq/L (98-107) H 01/22/19 03:38 Glucose 108 mg/dL (70-105) H 01/25/19 04:59 POC Glucose 130 mg/dL (70-99) H 01/28/19 11:40 Hemoglobin A1c 6.7 % (-5.6) H 01/19/19 01:46 C-Reactive Protein 24 mg/L (Less than 10) H 01/20/19 12:19 Microbiology, Last 48 Hours 01/22/19 19:23 Anaerobic Culture - Final Right Foot No anaerobes were recovered. 01/22/19 11:46 Blood Culture - Final Peripheral Venipuncture No growth. Final report. 01/22/19 11:55 Blood Culture - Final Peripheral Venipuncture No growth. Final report. Consult Discharge Plan - Plan Referrals: Miriam Briceno CNP [Advanced Practice Nurse] - Marilu Torres MD [Partnered Physician] - 02/26/19 10:45 am Prescriptions: Ceftriaxone Na/Dextrose,Iso [Ceftriaxone 2 gm Piggyback] 2 gm IV DAILY 42 Days #42 mls DAPTOmycin [Daptomycin] 750 mg IV DAILY #42 vial OxyCODONE Immed Rel [Roxicodone 5 MG] 10 mg PO Q8HR PRN 3 Days #6 tablet PRN Reason: Severe Pain
[2019-01-28 15:19] VITALS: BP 133/91
[2019-01-29] MEDS ORDERED: cefTRIAXone 2,000 MG in Water for inj. (sterile) 20 ML IVP SCH (09:00)
== END 2019-01-28 20:10 | DRG 854 ==
LOC: 3ANU → SUATTDRO 07:23
PROVIDERS: ADMIT Internal Medicine Nephrology; ATTEND Internal Medicine